=== PATIENT | male | born 1945 | race Caucasian/White ===

== ENCOUNTER 2023-12-31 13:10 | Inpatient (IN) | payer MEDICARE, SELFPAY ==
[2023-12-31] VITALS (7 sets, daily range): BP systolic 106–136; BP diastolic 60–86; PULSE 87–110; RESP 16–18; TEMP 36.7–37.1; O2SAT 93–97; BMI 32.3
--- NOTE | 2023-12-31 | EEG_ITS ---
FINDINGS: The waking background activity consists of low-voltage fast frequencies seen diffusely with muscle artifact anteriorly. Brief periods of very low voltage posterior 10 hertz developed. Photic stimulation is without activation. Hyperventilation was omitted. IMPRESSION: This waking EEG is considered within normal limits. No epileptiform discharges are seen. MD ASAD Sharma/ANAY / [id number]
--- NOTE | ~2023-12-31 | XR_ITS ---
EXAMINATION: PORTABLE CHEST 1 VIEW CLINICAL INFORMATION: Fall. COMPARISON: 08/19/2022. TECHNIQUE: Portable frontal view of the chest was obtained. FINDINGS: The lungs are hypoexpanded with minimal increased right basilar markings more likely due to atelectasis in this setting.. No focal infiltrate, effusion, edema, or pneumothorax. Cardiac and mediastinal silhouettes are within normal limits for size. Vascular calcification in aorta. No acute bony abnormality seen. XR/XR chest 1V IMPRESSION: Hypoexpanded with minimal increased right basilar markings more likely due to atelectasis.
--- NOTE | ~2023-12-31 | CT_ITS ---
EXAMINATION: CT cervical spine wo IV con, CT head/brain wo IV con INDICATION INFORMATION: Reason for Exam Seizure COMPARISON: Fall, seizure TECHNIQUE: Separate noncontrast CT examinations of the head and cervical spine were performed. Coronal and sagittal images were created for each examination at the technologist workstation. This CT examination was performed using dose optimization techniques as appropriate, variously including the following: *Automated exposure control *Adjustment of mA and/or kV according to patient size (this includes techniques or standardized protocols for targeted exams where dose is matched to indication/reason for exam; i.e. extremities or head) *Use of iterative reconstruction technique DLP: 1115.0 mGy-cm FINDINGS: Head: There is cystic encephalomalacia involving the majority of the right cerebral hemisphere, with sparing most notably involving the inferior temporal lobe, likely reflecting sequela of remote ischemic injury. Associated ex vacuo dilatation and abnormal morphology of the right lateral ventricle. 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 No acute osseous or soft tissue abnormality. The mastoid air cells and visualized portions of the paranasal sinuses are well aerated. There is no evidence of acute intracranial hemorrhage or territorial infarction. No abnormal mass effect or midline shift is seen. Huerta to white matter differentiation is well preserved. No extra-axial fluid collections are identified. No evidence of acute hydrocephalus. Cervical spine: There is no evidence of acute cervical spine fracture. Vertebral bodies remain normal in height. Reversal of usual cervical lordosis. Rightward curvature of the cervical spine. Advanced multilevel degenerative disc disease, worst from C3-C4 to C6-C7. There is also multilevel facet and uncovertebral hypertrophy. Suspected multilevel moderate to high-grade central spinal canal stenosis which is is not well evaluated by noncontrast CT. No pre- or paravertebral soft tissue abnormality is identified. Visualized portions of the lung apices are unremarkable. The thyroid gland is unremarkable. CT/CT cervical spine wo IV con IMPRESSION: 1. No acute intracranial abnormality. 2. Extensive encephalomalacia involving the majority of the right cerebral hemisphere, likely related to remote ischemic injury. 3. 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 No cervical spine fracture or traumatic malalignment.
--- NOTE | 2023-12-31 13:52 | ECG_ITS ---
Test Reason : FALL Blood Pressure : / mmHG Vent. Rate : 088 BPM Atrial Rate : 088 BPM P-R Int : 156 ms QRS Dur : 116 ms QT Int : 370 ms P-R-T Axes : 047 052 008 degrees QTc Int : 447 ms Normal sinus rhythm Incomplete right bundle branch block Borderline ECG No previous ECGs available Referred By: Parisa Landon Electronically Signed By:SHANTI HINES
--- NOTE | 2023-12-31 14:20 | ED_ITS ---
HPI - General Adult General Chief complaint: Fall Stated complaint: UNWIT FALL IN [employer],?LOC,?HS,DAILY ASA PER EMS Time Seen by Provider: 12/31/23 13:52 History of Present Illness HPI narrative: 78 y/o M patient; PMH HTN, cerebral palsy; presents as unwitnessed syncopal episode at [employer] prior to arrival. The patient states he lives alone and has been in a usual state of health. He went to [employer] today to look into getting a new phone. While there he had no prodromal symptoms but had syncopal episode with + head strike. He believes it only lasted for a few moments. He denies any current complaints in the emergency department. He denies any prior episodes of syncope. He denies: chest pain, SOB, cough/congestion, nausea/vomiting, abdominal pain, numbness/weakness/tingling. Related Data Allergies Allergy/AdvReac Type Severity Reaction Status Date / Time No Known Allergies Allergy Verified 12/31/23 13:52 Review of Systems 2 Review of Systems: Yes all other systems are reviewed and are negative Neurologic: Denies Sensory deficit (Neuro) [facility] Past Medical History Attestation statement: The following information was validated with the patient. Social History Social History Alcohol intake: never Smoked in Last 30 Days: No Use of substances other than those prescribed or required for medical reasons: No Advance Directives: No Advance Directives Information Provided: Yes Physical Exam ED Vital Signs: Vital Signs - 24 hr 12/31/23 13:34 12/31/23 14:07 12/31/23 17:40 Temperature 98.1 F 98.7 F Pulse Rate 97 92 87 Respiratory Rate 18 16 18 Blood Pressure 111/79 128/73 120/79 Pulse Oximetry 94 93 97 Oxygen Delivery Method Room Air Room Air Room Air 12/31/23 18:24 Temperature 98.2 F Pulse Rate 88 Respiratory Rate 16 Blood Pressure 130/60 Pulse Oximetry 94 Oxygen Delivery Method Room Air BMI result Body Mass Index 32.3 Patient is afebrile and hemodynamically stable. Const General: cooperative and no acute distress Orientation/consciousness: patient oriented x3 HENMT Head: Yes atraumatic Ears: TM's normal bilaterally Mouth: tongue normal Eyes Pupils: Equal, round and reactive pupils present EOM: EOMs intact bilaterally Neck Other: Cervical collar in place Neck: No tender Chest Chest palpation & inspection: normal inspection of the chest and normal palpation of entire chest wall Resp Effort & Inspection: normal respiratory effort, able to speak in complete sentences and no respiratory distress Auscultation: clear to auscultation bilaterally Cardio Rate: regular rate Rhythm: regular rhythm Peripheral pulses: Peripheral pulses 2+ throughout GI Inspection: Yes normal to inspection Palpation (GI): Soft to palpation, not firm, nontender, no guarding and not rigid Auscultation: normal bowel sounds Back/Spine/Pelvis Back: No back tenderness Neuro General: patient oriented x3 and moves all extremities Cranial nerves: Yes Facial sensation intact/muscles of mastication intact, Yes Intact sense of smell present, Yes Equal, round and reactive pupils present, Yes Nystagmus not present, Yes Midline tongue present, Yes Normal gag reflex present, Yes Symmetric palate elevation present, Yes Ability to bilaterally elevate shoulders present and Yes Other cranial nerve findings present (Right eye esotropia ) Motor exam (neuro): Other motor observations present (Strength 5/5 RUE. Strength 3/5 LUE. ) Sensory Exam: No Sensory deficit (Neuro) Course Course Course Narrative: Patient is afebrile and hemodynamically stable. Will obtain CXR, CT Head/Neck, EKG, and syncope labs. Reevaluation(s) Reevaluation #1: Patient has not previously been to this facility. Labs notable for evidence of mild dehydration with Cr 1.53, HCO3 19. Provided 2L IVF. Negative troponin. COVID/Flu/RSV negative. Ethanol negative. Time: 16:15 Reevaluation #2: CT Head and Cervical Spine without acute abnormalities. C-collar removed. Patient pending CXR. Time: 17:14 Reevaluation #3: Given unprovoked syncope without prodrome in elderly male with known HTN and cerebral palsy - will recommend admission to assess cardiac syncope. No clear indication of vasovagal or orthostatic syncope. Possible element of vasovagal syncope given laboratory evidence of dehydration, but patient without clear history of provoking preceding events. Plan: Admit to hospitalist Condition: Stable Medications Administered Discontinued Medications Generic Name Dose Route Start Last Admin Trade Name Freq PRN Reason Stop Dose Admin Sodium Chloride 1,000 mls @ 999 mls/hr 12/31/23 15:30 12/31/23 17:39 Ns IV 12/31/23 16:30 Infused .Q1H1M ELVIRA Infusion Sodium Chloride 1,000 mls @ 999 mls/hr 12/31/23 17:30 12/31/23 18:43 Ns IV 12/31/23 18:30 Infused .Q1H1M ELVIRA Infusion Medical Decision Making Lab Data 12/31/23 14:51 12/31/23 14:51 Labs: Lab Results 12/31/23 12/31/23 12/31/23 Range/Units 14:51 15:06 17:20 WBC 13.4 H (4.8-10.8) X10*3/uL RBC 5.54 (4.60-5.80) X10*6/uL Hgb 17.0 (14.0-18.0) g/dl Hct 50.0 (42.0-52.0) % MCV 90.3 (80.0-98.0) fL MCH 30.7 (27.0-33.0) pg MCHC 34.0 (31.0-36.0) g/dl RDW 13.7 (11.0-16.0) % Plt Count 245 (160-400) X10*3/uL MPV 9.9 (9.4-12.4) fL Immature Gran % (Auto) 0.4 (0.0-0.4) % Neut % (Auto) 74.1 H (45-73) % Lymph % (Auto) 18.8 L (20-40) % Carlton % (Auto) 5.7 (2-11) % Eos % (Auto) 0.1 (0-4) % Baso % (Auto) 0.9 (0-2) % Lymph # (Auto) 2.5 (1.2-4.9) X10*3/uL Carlton # (Auto) 0.8 (0.1-1.2) X10*3/uL Eos # (Auto) 0.0 (0.0-0.4) X10*3/uL Baso # (Auto) 0.1 (0.0-0.2) X10*3/uL Abs Immat Gran (auto) 0.05 H (0.00-0.03) X10*3/uL Absolute Neuts (auto) 9.9 H (2.0-8.3) x10*3/uL Absolute Nucleated RBC 0.000 (0.0-0.012) X10*3/uL Nucleated RBC % (auto) 0.0 (0.0-0.2) /100WBC Sodium 142 (135-145) mmol/L Potassium 4.7 (3.3-5.1) mmol/L Chloride 111 H (96-108) mmol/L Carbon Dioxide 19 L (22-29) mmol/L Anion Gap 17 (12-20) BUN 28 H (9-16) mg/dL Creatinine 1.53 H (0.5-1.4) mg/dL Estim Creat Clear Calc 36.6 Estimated GFR 44 Random Glucose 99 (60-115) mg/dL Calcium 9.3 (8.4-10.2) mg/dL Total Bilirubin 0.4 (0.0-1.0) mg/dL Direct Bilirubin 0.1 (0.0-0.5) mg/dL AST 21 (5-37) U/L ALT 30 (0-40) U/L Alkaline Phosphatase 63 (39-117) U/L Troponin I High Sens < 2.7 < 2.7 (<3.5-35.0) ng/L Total Protein 7.8 (6.5-8.0) g/dL Albumin 4.2 (3.5-5.0) g/dL Lipase 29 (8-78) U/L Ethyl Alcohol < 10 mg/dL Influenza Type A (PCR) NEGATIVE (Negative) Influenza Type B (PCR) NEGATIVE (Negative) RSV RNA Qual (PCR) NEGATIVE (Negative) SARS-CoV-2 RNA (RT-PCR) NEGATIVE (Negative) Independent Interpretation I performed an independent interpretation of an: EKG Interpretation: NSR 88BPM with normal axis, QRS 116, QTc 447 with RBBB. Radiology Impression Discussion of test interpretation with radiology: I have reviewed the radiologist's reading. Radiologist Impression: EXAMINATION: PORTABLE CHEST 1 VIEW CLINICAL INFORMATION: Fall. COMPARISON: 08/19/2022. TECHNIQUE: Portable frontal view of the chest was obtained. FINDINGS: The lungs are hypoexpanded with minimal increased right basilar markings more likely due to atelectasis in this setting.. No focal infiltrate, effusion, edema, or pneumothorax. Cardiac and mediastinal silhouettes are within normal limits for size. Vascular calcification in aorta. No acute bony abnormality seen. XR/XR chest 1V IMPRESSION: Hypoexpanded with minimal increased right basilar markings more likely due to atelectasis. EXAMINATION: CT cervical spine wo IV con, CT head/brain wo IV con INDICATION INFORMATION: Reason for Exam Seizure COMPARISON: Fall, seizure TECHNIQUE: Separate noncontrast CT examinations of the head and cervical spine were performed. Coronal and sagittal images were created for each examination at the technologist workstation. This CT examination was performed using dose optimization techniques as appropriate, variously including the following: *Automated exposure control *Adjustment of mA and/or kV according to patient size (this includes techniques or standardized protocols for targeted exams where dose is matched to indication/reason for exam; i.e. extremities or head) *Use of iterative reconstruction technique DLP: 1115.0 mGy-cm FINDINGS: Head: There is cystic encephalomalacia involving the majority of the right cerebral hemisphere, with sparing most notably involving the inferior temporal lobe, likely reflecting sequela of remote ischemic injury. Associated ex vacuo dilatation and abnormal morphology of the right lateral ventricle. 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 No acute osseous or soft tissue abnormality. The mastoid air cells and visualized portions of the paranasal sinuses are well aerated. There is no evidence of acute intracranial hemorrhage or territorial infarction. No abnormal mass effect or midline shift is seen. Huerta to white matter differentiation is well preserved. No extra-axial fluid collections are identified. No evidence of acute hydrocephalus. Cervical spine: There is no evidence of acute cervical spine fracture. Vertebral bodies remain normal in height. Reversal of usual cervical lordosis. Rightward curvature of the cervical spine. Advanced multilevel degenerative disc disease, worst from C3-C4 to C6-C7. There is also multilevel facet and uncovertebral hypertrophy. Suspected multilevel moderate to high-grade central spinal canal stenosis which is is not well evaluated by noncontrast CT. No pre- or paravertebral soft tissue abnormality is identified. Visualized portions of the lung apices are unremarkable. The thyroid gland is unremarkable. CT/CT head/brain wo IV con IMPRESSION: 1. No acute intracranial abnormality. 2. Extensive encephalomalacia involving the majority of the right cerebral hemisphere, likely related to remote ischemic injury. 3. 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 No cervical spine fracture or traumatic malalignment. Discharge Plan Discharge Clinical Impression: Syncope Patient Disposition: Admitted As Inpatient
[2023-12-31 14:57] LABS: MANUAL DIFF FLAG NO
[2023-12-31 14:59] LABS: Basophils Absolute Auto 0.1 X10*3/uL (0.0-0.2); Basophils Percent Auto 0.9 % (0-2); Eosinophils Percent Auto 0.1 % (0-4); Imm Gran Abs Auto 0.05 X10*3/uL (0.00-0.03); Imm Gran Pct Auto 0.4 % (0.0-0.4); Lymphocytes Absolute Auto 2.5 X10*3/uL (1.2-4.9); Lymphocytes Percent Auto 18.8 % (20-40); Mean Corpuscular Hemoglobin 30.7 pg (27.0-33.0); Mean Corpuscular Volume 90.3 fL (80.0-98.0); Mean Platelet Volume 9.9 fL (9.4-12.4); Monocytes Absolute Auto 0.8 X10*3/uL (0.1-1.2); Monocytes Percent Auto 5.7 % (2-11); Neutrophils Absolute Auto 9.9 x10*3/uL (2.0-8.3); Neutrophils Percent Auto 74.1 % (45-73); Platelet Count 245 X10*3/uL (160-400); Red Blood Count 5.54 X10*6/uL (4.60-5.80); Red Cell Distribution Width 13.7 % (11.0-16.0); White Blood Count 13.4 X10*3/uL (4.8-10.8)
[2023-12-31 15:19] LABS: Ethanol < 10 mg/dL
[2023-12-31 15:21] LABS: Alanine Aminotransferase 30 U/L (0-40); Albumin Level 4.2 g/dL (3.5-5.0); Alkaline Phosphatase 63 U/L (39-117); Anion Gap 17 (12-20); Aspartate Amino Transferase 21 U/L (5-37); Bilirubin Direct 0.1 mg/dL (0.0-0.5); Bilirubin Total 0.4 mg/dL (0.0-1.0); Blood Urea Nitrogen 28 mg/dL (9-16); Calcium 9.3 mg/dL (8.4-10.2); Carbon Dioxide 19 mmol/L (22-29); Chloride 111 mmol/L (96-108); Creatinine Clr Calc Pharmacy 36.6; Estimated Glomerular Filt Rate 44; Glucose Random 99 mg/dL (60-115); Lipase 29 U/L (8-78); Potassium 4.7 mmol/L (3.3-5.1); Sodium 142 mmol/L (135-145); Total Protein 7.8 g/dL (6.5-8.0)
[2023-12-31 15:27] LABS: Troponin-I High Sensitivity < 2.7 ng/L (<3.5-35.0)
[2023-12-31] MEDS: 0.9 % Sodium Chloride 1,000 ML 999 ML IV ×2 (15:30→17:39)
[2023-12-31 15:48] LABS: Influenza A PCR NEGATIVE (Negative); Influenza B PCR NEGATIVE (Negative); Resp Syncy Virus RNA Qual PCR NEGATIVE (Negative); SARS COV2 PCR INHOUSE NEGATIVE (Negative)
--- NOTE | 2023-12-31 17:05 | PC.NURSE ---
Per desean (sister in law of Jason) Jason HCP was rushed to hospital this afternoon and will not be able to pick patient up if he is to be discharged. Kaye stating that she will call back for further updates
[2023-12-31 17:50] LABS: Troponin-I High Sensitivity < 2.7 ng/L (<3.5-35.0)
--- NOTE | 2023-12-31 18:45 | PC.NURSE ---
Continues to denies pain or discomfort, fluids infused per mar, vss, nsr on monitor
--- NOTE | 2023-12-31 19:32 | PHA.MEDREC ---
Pharmacy Consult ? Medication Reconciliation Pharmacy has completed the medication reconciliation. Patient reported all medications. Danyell Christensen, PeytonD
--- NOTE | 2023-12-31 20:16 | PM.IMHP ---
History of Present Illness Date of Service: 12/31/23 Attending physician on admission: Yari Garrido Chief Complaint: fall 78-year-old male with history of hypertension, cerebral palsy presented to the ED via EMS following an unwitnessed fall, [place] [employer] [place] to [place]. The patient tells me that he resides in an assisted living facility in [facility] but was on a senior trip which is how [place]. He states he tripped and fell to the ground. Denies any head strike and is unsure if he lost consciousness. The fall was unwitnessed. He denies any recent illness. He denies any prodrome leading up to the fall including lightheadedness, visual changes, headache, weakness, paresthesias, palpitations, shortness of breath, or chest pain. Denies any fevers, chills, abdominal pain, nausea, vomiting, diarrhea, urinary symptoms. On arrival, vital signs stable. There is a mild leukocytosis of 13.4. Creatinine 1.53, baseline unknown. BUN 28. Electrolyte levels within normal limits except CO2 of 19. Ethyl alcohol level undetectable. Urine drug screen pending. Negative for COVID-19, influenza, RSV. Head CT negative for any acute intracranial abnormality but showed extensive encephalomalacia involving the majority of the right cerebral hemisphere likely related to remote ischemic injury. 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 CT of the cervical spine negative for any acute fracture, subluxation, or dislocation. Chest x-ray shows hypoexpanded lungs with mildly increased right basilar markings likely due to atelectasis. In the ED, has received 2 L IV NS. Review of Systems Review of Systems: General: No fevers, malaise, unintentional weight loss HEENT: No blurred vision, diplopia. No sore throat, nasal congestion, rhinorrhea, sinus pain, ear pain Cardiovascular: No chest pain, palpitations, or leg edema Respiratory: No shortness of breath, wheezing, cough GI: No abdominal pain, nausea, vomiting, diarrhea, constipation, melena, hematochezia : No dysuria, hematuria, increased urinary frequency, decreased urinary output MSK: No myalgia, back pain Neuro: No headaches, weakness, paresthesias Skin: No rashes or lesions [facility] Medical History Cerebral palsy HTN (hypertension) Social History Alcohol intake: never Smoked in Last 30 Days: No Use of substances other than those prescribed or required for medical reasons: No Advance Directives: No Advance Directives Information Provided: Yes Meds Allergies Allergy/AdvReac Type Severity Reaction Status Date / Time No Known Allergies Allergy Verified 12/31/23 13:52 Active Medications: Current Medications Acetaminophen (Acetaminophen 325 Mg Tablet) 650 mg PO Q6H PRN PRN Reason: Pain, Mild (Pain Scale 1-3) Heparin Sodium (Porcine) (Heparin Sodium,Porcine 5,000 Unit/Ml Vial) 5,000 unit SUBCUT Q12H ELVIRA Ondansetron HCl (Ondansetron Hcl 4 Mg/2 Ml Vial) 4 mg IVPUSH Q8H PRN PRN Reason: Nausea and Vomiting Senna (Sennosides 8.6 Mg Tablet) 17.2 mg PO BEDTIME PRN PRN Reason: Constipation Sodium Chloride (0.9 % Sodium Chloride Flush 3 Ml Syringe) 3 ml IVFLUSH QSHIFT [facility] Home Medications Medication Instructions Recorded Confirmed Last Taken Type aspirin 81 mg tablet,delayed 81 mg PO DAILY 12/31/23 12/31/23 12/31/23 History release cholecalciferol (vitamin D3) 25 25 mcg PO DAILY 12/31/23 12/31/23 12/31/23 History mcg (1,000 unit) tablet lisinopril 20 mg tablet 20 mg PO DAILY 12/31/23 12/31/23 12/31/23 History Physical Exam Vital Signs and Narrative: Vital Signs: Last Vital Signs Temp 98.2 F 12/31/23 18:24 Pulse 88 12/31/23 18:24 Resp 16 12/31/23 18:24 BP 130/60 12/31/23 18:24 Pulse Ox 94 12/31/23 18:24 O2 Del Method Room Air 12/31/23 18:24 BMI result Body Mass Index 32.3 Constitutional - Awake and Alert, No apparent distress Eyes - PERRLA, EOMI Cardiovascular - S1S2, RRR, No edema Respiratory - Normal lung expansion, Normal respiratory effort, No respiratory distress, CTA bilaterally Gastrointestinal - NT / ND; +BS; No rebound or guarding Extremities - no calf tenderness bilaterally, no swelling Skin - Warm/Dry Neurological - Alert & oriented x3, baseline R cranial nerve IV palsy, otherwise CN II-XII in tact, 5/5 strength BUE and BLE Psychological - Appropriate affect Results Labs 12/31/23 14:51 12/31/23 14:51 Labs: Laboratory Results - last 24 hr 12/31/23 12/31/23 14:51 15:06 MCV 90.3 MCH 30.7 MCHC 34.0 RDW 13.7 Plt Count 245 MPV 9.9 Immature Gran % (Auto) 0.4 Neut % (Auto) 74.1 H Lymph % (Auto) 18.8 L Cross % (Auto) 5.7 Eos % (Auto) 0.1 Baso % (Auto) 0.9 Lymph # (Auto) 2.5 Cross # (Auto) 0.8 Eos # (Auto) 0.0 Baso # (Auto) 0.1 Abs Immat Gran (auto) 0.05 H Absolute Neuts (auto) 9.9 H Absolute Nucleated RBC 0.000 Nucleated RBC % (auto) 0.0 Anion Gap 17 Estim Creat Clear Calc 36.6 Estimated GFR 44 Random Glucose 99 Calcium 9.3 Total Bilirubin 0.4 Direct Bilirubin 0.1 AST 21 ALT 30 Alkaline Phosphatase 63 Total Protein 7.8 Albumin 4.2 Lipase 29 Ethyl Alcohol < 10 Influenza Type A (PCR) NEGATIVE Influenza Type B (PCR) NEGATIVE RSV RNA Qual (PCR) NEGATIVE SARS-CoV-2 RNA (RT-PCR) NEGATIVE Imaging Radiologist's Impressions: Impressions Cervical Spine CT 12/31/23 15:58 IMPRESSION: 1. No acute intracranial abnormality. 2. Extensive encephalomalacia involving the majority of the right cerebral hemisphere, likely related to remote ischemic injury. 3. 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 No cervical spine fracture or traumatic malalignment. Head CT 12/31/23 15:58 IMPRESSION: 1. No acute intracranial abnormality. 2. Extensive encephalomalacia involving the majority of the right cerebral hemisphere, likely related to remote ischemic injury. 3. 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 No cervical spine fracture or traumatic malalignment. Chest X-Ray 12/31/23 17:58 IMPRESSION: Hypoexpanded with minimal increased right basilar markings more likely due to atelectasis. Assessment and Plan (1) Syncope: Status: Acute Plan 78-year-old male with history of hypertension, cerebral palsy to be observed for unwitness fall with concern for syncope. #Unwitnessed fall with concern for syncope -Head CT negative for any acute intracranial abnormality, but shows large area encephalomalacia. CT cervical spine negative for any acute osseous abnormality -rule out infectious etiology with UA/UC. CXR negative for infection. Pt afebrile, mild leukocytosis 13 -No hypotension. Check orthostatic VS -Check echo -EEG -monitor on telemetry -PT evaluation -Received 2L IVF in ED, hold on additional fluids at this time #Elevated creatinine -baseline unknown -Received 2L IVF in ED -Follow renal function/lytes #HTN -bp reasonably controlled -continue lisinopril DVT prophylaxis-heparin Full code It is unclear why pt came to [employer] in [place], [place] when he lives in [facility]. He states he was on a trip with senior group. He is oriented, knows his name, where he is, and year. Gives me the name of his HCP, brother Jason and phone number, though I have been unable to reach him. Attempt was also made to reach his assisted living facility [facility] in [facility] but was unsuccessful. Patient requires inpatient stay at least 2 midnights due to unwitnessed fall with concern for syncope requiring further investigation and etiology of the syncopal episode, possible expert consultation, and PT evaluation for possible placement to [facility] Stroke Does the patient have a stroke diagnosis?: No VTE Prior VTE?: No VTE Risk Level:: Medical - moderate - high VTE Device Contraindication: Treatment Not Indicated VTE Drug Contraindication: N/A - Med Ordered
[2023-12-31] MEDS: Acetaminophen 325 MG TABLET 975 MG PO (21:18)
[2023-12-31] MEDS: Heparin Sodium,Porcine 5,000 UNIT/ML VIAL 5000 UNIT SUBCUT (21:23)
[2024-01-01] VITALS (12 sets, daily range): BP systolic 109–150; BP diastolic 58–92; PULSE 70–110; RESP 14–20; TEMP 36.1–37.1; O2SAT 92–95; BMI 32.3
--- NOTE | 2024-01-01 01:03 | PC.NURSE ---
Kaye Cuellar, sister in law,
[2024-01-01 01:10] LABS: Appearance Urine Cloudy; Color Urine Yellow; Glucose Urine UA Negative (Negative); Leukocyte Esterase Urine Small (1+) (Negative); Nitrite Urine Negative (Negative); PH 5.5 (5.0-9.0); UMIC TRIGGER UACC YES; Urine Blood Negative (Negative); Urine Ketones Trace mg/dL (Negative); Urine Protein Trace mg/dL (Neg-Trace)
[2024-01-01 01:23] LABS: Amphetamine Screen Urine Not Detected (Not Detect); Barbiturates, Urine Not Detected (Not Detect); Benzodiazepines Screen Urine Not Detected (Not Detect); Cannabinoid Screen Urine Not Detected (Not Detect); Cocaine Screen Urine Not Detected (Not Detect); Fentanyl, urine Not Detected (Not Detect); Opiate Screen Urine Not Detected (Not Detect); Phencyclidine Screen Urine Not Detected (Not Detect)
[2024-01-01 01:29] LABS: Bacteria Urine None Seen (None Seen); Hyaline Casts Urine 0-2 /LPF (0-2); RBC Urine 0-2 /HPF (0-2); Squamous Epithelial Cell Urine 0-2 /HPF (0-2); UACC Culture Trigger YES; WBC Urine 0-5 /HPF (0-5)
[2024-01-01 05:03] LABS: Appearance Urine Clear; Color Urine Yellow; Glucose Urine UA Negative (Negative); Leukocyte Esterase Urine Negative (Negative); Nitrite Urine Negative (Negative); PH 5.5 (5.0-9.0); UMIC TRIGGER UA YES; Urine Blood Trace (Negative); Urine Ketones Trace mg/dL (Negative); Urine Protein Negative (Neg-Trace)
[2024-01-01 05:09] LABS: Bacteria Urine None Seen (None Seen); Hyaline Casts Urine 0-2 /LPF (0-2); Squamous Epithelial Cell Urine 0-2 /HPF (0-2); WBC Urine 0-5 /HPF (0-5)
--- NOTE | 2024-01-01 07:00 | CA_ITS ---
Transthoracic Echocardiogram Patient (Last, First, Middle): Jason Velez, Gender: Male Date of : 1945 Age: 78 Procedure Date: 01/01/2024 Procedure Type: Transthoracic Echocardiogram Location: [facility] Height: 160.02 cm Weight: 82.56 kg BSA: 1.86 m2 Heart Rate: bpm BP: 109 / 58 mmHg Shake Maker: Referring MD: Joaquina LAGUNA Symptoms: syncope Study Quality: Adequate ECG Rhythm: Sinus Conclusions: - The left ventricular systolic function is hyperdynamic. The calculated ejection fraction is 73% by biplane method. - No obvious valvular pathology seen on this study. Findings Left Ventricle Normal left ventricular cavity size. There is mildly increased left ventricular wall thickness. The left ventricular systolic function is hyperdynamic. The calculated ejection fraction is 73% by biplane method. There is no evidence of regional wall motion abnormalities. Diastolic function is normal for age. Right Ventricle Normal right ventricular cavity size and systolic function. Atria Both atria are normal in size. Aortic Valve The aortic valve structure and function is likely normal. There is no aortic valve stenosis. There is no aortic valve regurgitation. Mitral Valve The mitral valve appears normal. There is no mitral valve regurgitation. There is no mitral valve stenosis. Pulmonic Valve The pulmonic valve is likely normal. Tricuspid Valve There is trace tricuspid valve regurgitation. There is no evidence of pulmonary hypertension. Great Vessels The aorta was not well visualized. The aortic annulus is normal in size. Venous The inferior vena cava is normal in size and collapses greater than 50% with inspiration. Pericardium/Pleural There is no evidence of pericardial effusion. Prior Study Comparison No prior study available for comparison. Recommendations, Care & Conclusions No obvious valvular pathology seen on this study. Measurements 2D Linear Measurements IVSd: 1.01 0.6-0.9/0.6-1.0 cm LVIDd: 3.28 3.9-5.3/4.2-5.9 cm LVIDd Index: 1.76 2.4-3.2/2.2-3.1 cm/m2 LVIDs: 1.88 2.0-3.6 cm LVPWd: 1.01 0.7-1.1 cm Ao Root: 3.40 2.1-3.5 cm LA Diam: 2.80 2.7-3.8/3.0-4.0 cm LAIDs Index: 1.51 1.5-2.3 cm/m2 LV Mass: 118.13 67-162/88-224 g LV Mass Index: 63.51 43-95/49-115 g/m2 LVOT Diam: 2.20 3.0+(-)1.3 cm 2D Systolic Function EF 4C: 71.50 >55% EF 2C: 75.80 >55% EF BiP: 72.50 >55% Mitral Valve MV Pk E: 0.42 MV PK A: 1.07 MV Decel Time: 123.00 E/A: 0.40 E'Lateral: 5.55 E'Medial: 5.00 E/E' Med: 8.40 E/E' Lat: 7.60 PHT: 36.00 MVA PHT: 6.11 Decel Murray: 5.78 Aortic Valve AoV Pk Иван: 1.66 AoV Mn Иван: 1.01 AoV VTI: 0.30 AoV Pk Grad: 11.00 Aov Mn Grad: 5.00 MARTHA Cont.VTI: 3.19 LVOT LVOT Pk Иван: 1.52 LVOT Mn Иван: 0.89 LVOT VTI: 0.25 LVOT Pk Grad: 9.00 LVOT Mn Grad: 4.00 LVOT Diam: 2.20 LVOT Area: 3.80 Diastolic Function MV Pk E: 0.42 MV Pk A: 1.07 E/A: 0.40 E'Medial: 5.00 E/E' Med: 8.40 E' Laterial: 5.55 E/E' Lat: 7.60 Right Ventricle TAPSE (mm): 23.00 TVS' Иван: 13.00 Tricuspid Valve TR Pk Иван: 1.92 TR Pk Grad: 15.00 RA Press: 3.00 RVSP: 18.00 Great Vessels Aorta Ao Root-2D: 3.40 2.0-3.7 cm Pulmonary Valve PV Pk Иван: 1.07 Peak PV Grad: 5.00 Updated in Other Vendor System with Status of Final Brody Gorman MD electronically signed on 01/01/2024 9:59:45 AM with status of Final
[2024-01-01] MEDS: 0.9 % Sodium Chloride Flush 3 ML SYRINGE IVFLUSH ×2 (09:28→16:03)
[2024-01-01] MEDS: Cholecalciferol (Vitamin D3) 25 MCG TABLET PO (09:28)
[2024-01-01] MEDS: Aspirin Enteric Coated 81 MG TABLET.DR PO (09:28)
[2024-01-01] MEDS: Heparin Sodium,Porcine 5,000 UNIT/ML VIAL 5000 UNIT SUBCUT ×2 (09:29→23:11)
--- NOTE | 2024-01-01 09:39 | MHC.CM.PN ---
IMM 01/01/24, Pt lives in [facility] in [place], [place]. He has HCP: his brother Ladarius, (contact sister in law, Kaye Cuellar: [phone]. MICHELLE RN: Ebony Elizabeth, . [facility] provides meals and assistance with med management and ADL's. Jason has a shower chair and cane for medical equipment. If he needs skilled VNA care upon DC, contact: [facility]: ph. [phone], fax. [phone]. His pharmacy: [facility] in [place], [place]: ph. [phone]. fax: [phone]. The [facility] does not provide transportation, so transport home is TBD. CM will follow and assist with DC plan.
[2024-01-01 09:55] LABS: MANUAL DIFF FLAG NO
[2024-01-01 09:59] LABS: Basophils Absolute Auto 0.1 X10*3/uL (0.0-0.2); Basophils Percent Auto 0.8 % (0-2); Hemoglobin 15.2 g/dl (14.0-18.0); Imm Gran Abs Auto 0.04 X10*3/uL (0.00-0.03); Imm Gran Pct Auto 0.4 % (0.0-0.4); Lymphocytes Absolute Auto 2.1 X10*3/uL (1.2-4.9); Lymphocytes Percent Auto 19.2 % (20-40); Mean Corpuscular HGB Conc 33.8 g/dl (31.0-36.0); Mean Corpuscular Hemoglobin 30.7 pg (27.0-33.0); Mean Corpuscular Volume 90.9 fL (80.0-98.0); Mean Platelet Volume 10.1 fL (9.4-12.4); Monocytes Absolute Auto 0.8 X10*3/uL (0.1-1.2); Monocytes Percent Auto 7.9 % (2-11); Neutrophils Absolute Auto 7.7 x10*3/uL (2.0-8.3); Neutrophils Percent Auto 71.7 % (45-73); Platelet Count 227 X10*3/uL (160-400); Red Blood Count 4.95 X10*6/uL (4.60-5.80); Red Cell Distribution Width 13.8 % (11.0-16.0); White Blood Count 10.7 X10*3/uL (4.8-10.8)
[2024-01-01 10:11] LABS: Anion Gap 12 (12-20); Blood Urea Nitrogen 21 mg/dL (9-16); Calcium 8.4 mg/dL (8.4-10.2); Carbon Dioxide 21 mmol/L (22-29); Chloride 116 mmol/L (96-108); Estimated Glomerular Filt Rate 52; Glucose Random 102 mg/dL (60-115); Potassium 4.2 mmol/L (3.3-5.1); Sodium 145 mmol/L (135-145)
[2024-01-01] MEDS: Lactated Ringers 1,000 ML 80 ML IVCONT (10:36)
--- NOTE | 2024-01-01 17:26 | P.PNIM_ITS ---
Subjective Subjective Date of Service: 01/01/24 Interval History: patient denies losing consiousness ,says tripped and fell Review of Systems Denies any chest pain or shortness of breath Physical Exam 2 Vital Signs: Vital Signs: Last Vital Signs Temp 98.0 F 01/01/24 15:29 Pulse 74 01/01/24 15:30 Resp 18 01/01/24 15:30 BP 122/76 01/01/24 15:29 Pulse Ox 94 01/01/24 15:30 O2 Del Method Room Air 01/01/24 15:29 BMI result Body Mass Index 32.3 Appearance: Alert.? Oriented X3.? not in distress.? cvs: rrr, [id number] , no murmur res: clear to auscultation ,no rhonchii or wheezing abd: no rebound or guarding ,nt, bs present. ext pulses present , no cyanosis . : has penile quentin swellin ,no erythema or discharge,difficult to urinate? neuro: axo3 , nonfocal. Objective Data Active Medications Acetaminophen (Acetaminophen 325 Mg Tablet) 650 mg PO Q6H PRN PRN Reason: Pain, Mild (Pain Scale 1-3) Aspirin (Aspirin Enteric Coated 81 Mg Tablet.) 81 mg PO DAILY [facility] Last Admin: 01/01/24 09:28 Dose: 81 mg Documented By: ABIOLA Heparin Sodium (Porcine) (Heparin Sodium,Porcine 5,000 Unit/Ml Vial) 5,000 unit SUBCUT Q12H [facility] Last Admin: 01/01/24 09:29 Dose: 5,000 unit Documented By: ABIOLA Lactated Ringer's (Lr) 1,000 mls @ 80 mls/hr IVCONT .[id number] [facility] Last Admin: 01/01/24 16:52 Dose: Not Given Documented By: ABIOLA Non-Admin Reason: Physician Held Med Ondansetron HCl (Ondansetron Hcl 4 Mg/2 Ml Vial) 4 mg IVPUSH Q8H PRN PRN Reason: Nausea and Vomiting Senna (Sennosides 8.6 Mg Tablet) 17.2 mg PO BEDTIME PRN PRN Reason: Constipation Sodium Chloride (0.9 % Sodium Chloride Flush 3 Ml Syringe) 3 ml IVFLUSH QSHIFT [facility] Last Admin: 01/01/24 16:03 Dose: 3 ml Documented By: ABIOLA Vitamin D (Cholecalciferol (Vitamin D3) 25 Mcg Tablet) 25 mcg PO DAILY [facility] Last Admin: 01/01/24 09:28 Dose: 25 mcg Documented By: ABIOLA Labs 01/01/24 08:46 01/01/24 08:46 Labs: Laboratory Results - last 24 hr 01/01/24 01/01/24 01/01/24 00:56 00:57 04:45 MCV MCH MCHC RDW Plt Count MPV Immature Gran % (Auto) Neut % (Auto) Lymph % (Auto) Hunt % (Auto) Eos % (Auto) Baso % (Auto) Lymph # (Auto) Hunt # (Auto) Eos # (Auto) Baso # (Auto) Abs Immat Gran (auto) Absolute Neuts (auto) Absolute Nucleated RBC Nucleated RBC % (auto) Anion Gap Estim Creat Clear Calc Estimated GFR Random Glucose Calcium Urine Color Yellow Yellow Urine Appearance Cloudy Clear Urine pH 5.5 5.5 Ur Specific [place] 1.020 1.020 Urine Protein Trace Negative Urine Glucose (UA) Negative Negative Urine Ketones Trace Trace Urine Blood Negative Trace H Urine Nitrite Negative Negative Ur Leukocyte Esterase Small (1+) H Negative Urine RBC 0-2 6-10 H Urine WBC 0-5 0-5 Ur Squamous Epith Cells 0-2 0-2 Urine Bacteria None Seen None Seen Hyaline Casts 0-2 0-2 Urine Opiates Screen Not Detected Urine Fentanyl Screen Not Detected Ur Barbiturates Screen Not Detected Ur Phencyclidine Scrn Not Detected Ur Amphetamines Screen Not Detected U Benzodiazepines Scrn Not Detected Urine Cocaine Screen Not Detected U Marijuana (THC) Screen Not Detected 01/01/24 08:46 MCV 90.9 MCH 30.7 MCHC 33.8 RDW 13.8 Plt Count 227 MPV 10.1 Immature Gran % (Auto) 0.4 Neut % (Auto) 71.7 Lymph % (Auto) 19.2 L Hunt % (Auto) 7.9 Eos % (Auto) 0.0 Baso % (Auto) 0.8 Lymph # (Auto) 2.1 Hunt # (Auto) 0.8 Eos # (Auto) 0.0 Baso # (Auto) 0.1 Abs Immat Gran (auto) 0.04 H Absolute Neuts (auto) 7.7 Absolute Nucleated RBC 0.000 Nucleated RBC % (auto) 0.0 Anion Gap 12 Estim Creat Clear Calc 42.0 Estimated GFR 52 Random Glucose 102 Calcium 8.4 D Urine Color Urine Appearance Urine pH Ur Specific [place] Urine Protein Urine Glucose (UA) Urine Ketones Urine Blood Urine Nitrite Ur Leukocyte Esterase Urine RBC Urine WBC Ur Squamous Epith Cells Urine Bacteria Hyaline Casts Urine Opiates Screen Urine Fentanyl Screen Ur Barbiturates Screen Ur Phencyclidine Scrn Ur Amphetamines Screen U Benzodiazepines Scrn Urine Cocaine Screen U Marijuana (THC) Screen Assessment and Plan (1) Syncope: Status: Acute Plan 78-year-old male with history of hypertension, cerebral palsy to be observed for unwitness fall with concern for syncope. Unwitnessed fall with concern for syncope -Head CT negative for any acute intracranial abnormality, but shows large area encephalomalacia. CT cervical spine negative for any acute osseous abnormality CXR negative for infection. Pt afebrile, mild leukocytosis 13 ua neg for pyuria /bacteruria orthostatic signs -pending Check echo: The left ventricular systolic function is hyperdynamic. The calculated ejection fraction is 73% by biplane method. - No obvious valvular pathology seen on this study. EEG pending plan: monitor on telemetry PT evaluation THOMAS: -baseline unknown,BUT CR Improving IVf -Follow renal function/lytes HTN -bp reasonably controlled hold lisinopril Possible balanitis and urinary retention:PVR, straight cath, urology evaluation, Flomax. DVT prophylaxis-heparin Ongoing need for Hospitalization stay: For syncopal workup, telemetry monitoring as well as PT evaluation in addition patient has possible balanitis with urinary retention need urology evaluation as well as THOMAS need hydration and renal function and electrolyte monitoring Quality Stroke Does the patient have a stroke diagnosis?: No VTE Prior VTE?: No VTE Risk Level:: Medical - moderate - high VTE Device Contraindication: Treatment Not Indicated VTE Drug Contraindication: N/A - Med Ordered
--- NOTE | 2024-01-01 17:40 | PM.NEUROCN ---
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 syncopal episode. No h/o Sz. He resides in an assisted living facility in [facility] but was on a senior trip which is how he ended up in [place] the mall. He states he tripped and fell to the ground. Denies any head strike and is unsure if he lost consciousness. The fall was unwitnessed. He denies any recent illness. He denies any prodrome leading up to the fall including lightheadedness, visual changes, headache, weakness, paresthesias, palpitations, shortness of breath, or chest pain. 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 CT of the cervical spine negative for any acute fracture, subluxation, or dislocation. EEG show slow voltage EEG with no Sz discharges Review of Systems Review of Systems: Denies any chest pain or shortness of breath Yes all other systems are reviewed and are negative Neurologic: Denies Sensory deficit (Neuro) [facility] Past Medical History Medical History Cerebral palsy HTN (hypertension) Social History Social History Household Members: None Housing: Apartment Do you presently have visiting nurse or other home services: Yes Alcohol intake: never Patient Tobacco Use Status: Never used Tobacco Smoked in Last 30 Days: No Use of substances other than those prescribed or required for medical reasons: No Currently Displaying Signs/Symptoms of Drug Intoxication Withdrawal: No Have you been hit, kicked, punched, or otherwise hurt by someone within the past year? If so, by whom?: No Do you feel safe in your current relationship?: Yes Is there a partner from a previous relationship who is making you feel unsafe now?: No Are you made to feel afraid or neglected: No Spiritual Healthcare Practices: Temple Advance Directives: No Advance Directives Information Provided: No Advance Directives on File: No Do you have thoughts of harming others: None Do you have a plan to hurt others: No Plan Recently lost weight without trying: No Eating poorly because of decreased appetite: No Nutrition Risks: No Nutritional Risk Poor oral hygiene: No service: No Meds Allergies Allergy/AdvReac Type Severity Reaction Status Date / Time No Known Allergies Allergy Verified 12/31/23 13:52 Active Medications: Current Medications Acetaminophen (Acetaminophen 325 Mg Tablet) 650 mg PO Q6H PRN PRN Reason: Pain, Mild (Pain Scale 1-3) Aspirin (Aspirin Enteric Coated 81 Mg Tablet.Dr) 81 mg PO DAILY [facility] Last Admin: 01/01/24 09:28 Dose: 81 mg Heparin Sodium (Porcine) (Heparin Sodium,Porcine 5,000 Unit/Ml Vial) 5,000 unit SUBCUT Q12H [facility] Last Admin: 01/01/24 09:29 Dose: 5,000 unit Lactated Ringer's (Lr) 1,000 mls @ 80 mls/hr IVCONT .[id number] [facility] Last Admin: 01/01/24 16:52 Dose: Not Given Ondansetron HCl (Ondansetron Hcl 4 Mg/2 Ml Vial) 4 mg IVPUSH Q8H PRN PRN Reason: Nausea and Vomiting Senna (Sennosides 8.6 Mg Tablet) 17.2 mg PO BEDTIME PRN PRN Reason: Constipation Sodium Chloride (0.9 % Sodium Chloride Flush 3 Ml Syringe) 3 ml IVFLUSH QSHIFT [facility] Last Admin: 01/01/24 16:03 Dose: 3 ml Vitamin D (Cholecalciferol (Vitamin D3) 25 Mcg Tablet) 25 mcg PO DAILY [facility] Last Admin: 01/01/24 09:28 Dose: 25 mcg Home Medications Medication Instructions Recorded Confirmed Last Taken Type aspirin 81 mg tablet,delayed 81 mg PO DAILY 12/31/23 12/31/23 12/31/23 History release cholecalciferol (vitamin D3) 25 25 mcg PO DAILY 12/31/23 12/31/23 12/31/23 History mcg (1,000 unit) tablet lisinopril 20 mg tablet 20 mg PO DAILY 12/31/23 12/31/23 12/31/23 History Physical Exam Vital Signs: Vital Signs: Last Vital Signs Temp 98.0 F 01/01/24 15:29 Pulse 74 01/01/24 15:30 Resp 18 01/01/24 15:30 BP 122/76 01/01/24 15:29 Pulse Ox 94 01/01/24 15:30 O2 Del Method Room Air 01/01/24 15:29 BMI result Body Mass Index 32.3 Const: General: cooperative and no acute distress Orientation/consciousness: patient oriented x3 HEENT: Head: Yes atraumatic Ears: TM's normal bilaterally Mouth: tongue normal Eyes: Pupils: Equal, round and reactive pupils present EOM: EOMs intact bilaterally Neck: Other: Cervical collar in place Neck: No tender Chest: Chest palpation & inspection: normal inspection of the chest and normal palpation of entire chest wall Resp: Effort & Inspection: normal respiratory effort, able to speak in complete sentences and no respiratory distress Auscultation: clear to auscultation bilaterally Cardio: Rate: regular rate Rhythm: regular rhythm Peripheral pulses: Peripheral pulses 2+ throughout GI: Inspection: Yes normal to inspection Palpation (GI): Soft to palpation, not firm, nontender, no guarding and not rigid Auscultation: normal bowel sounds Back/Spine/Pelvis: Back: No back tenderness Neuro: Other: He is alert and oriented to person, place, and partially to time. He follows commands well. His speech is fairly clear with minimal dysarthria. He has mild left hemiatrophy of the upper and lower extremity with the spasticity and hyperreflexia. He walks with a cane.He has a strabismus. General: patient oriented x3 and moves all extremities Cranial nerves: Yes Facial sensation intact/muscles of mastication intact, Yes Intact sense of smell present, Yes Equal, round and reactive pupils present, Yes Nystagmus not present, Yes Midline tongue present, Yes Normal gag reflex present, Yes Symmetric palate elevation present, Yes Ability to bilaterally elevate shoulders present and Yes Other cranial nerve findings present (Right eye esotropia ) Sensory Exam: No Sensory deficit (Neuro) Results Labs 01/01/24 08:46 01/01/24 08:46 Labs: Short CBC 01/01/24 Range/Units 08:46 WBC 10.7 (4.8-10.8) X10*3/uL Hgb 15.2 (14.0-18.0) g/dl Hct 45.0 (42.0-52.0) % Plt Count 227 (160-400) X10*3/uL BMP 01/01/24 08:46 Sodium 145 Potassium 4.2 Chloride 116 H Carbon Dioxide 21 L BUN 21 H Creatinine 1.33 Calcium 8.4 D Urine 01/01/24 01/01/24 Range/Units 00:57 04:45 Urine Color Yellow Yellow Urine Appearance Cloudy Clear Urine pH 5.5 5.5 (5.0-9.0) Ur Specific [place] 1.020 1.020 (1.005-1.025) Urine Protein Trace Negative (Neg-Trace) mg/dL Urine Glucose (UA) Negative Negative (Negative) mg/dL Assessment and Plan (1) Syncope: Status: Acute It is unclear if he fell or had a syncopal episode. There is no epileptiiform activity on the EEG. He has marked developmental abnormalities of the brain for which he is well compensated. I will put and would not start him on any seizure medications. Cardiac monitoring. Plan 78-year-old male with history of hypertension, cerebral palsy to be observed for unwitness fall with concern for syncope. Unwitnessed fall with concern for syncope -Head CT negative for any acute intracranial abnormality, but shows large area encephalomalacia. CT cervical spine negative for any acute osseous abnormality CXR negative for infection. Pt afebrile, mild leukocytosis 13 ua neg for pyuria /bacteruria orthostatic signs -pending Check echo: The left ventricular systolic function is hyperdynamic. The calculated ejection fraction is 73% by biplane method. - No obvious valvular pathology seen on this study. EEG pending plan: monitor on telemetry PT evaluation THOMAS: -baseline unknown,BUT CR Improving IVf -Follow renal function/lytes HTN -bp reasonably controlled hold lisinopril Possible balanitis and urinary retention:PVR, straight cath, urology evaluation, Flomax. DVT prophylaxis-heparin Ongoing need for Hospitalization stay: For syncopal workup, telemetry monitoring as well as PT evaluation in addition patient has possible balanitis with urinary retention need urology evaluation as well as THOMAS need hydration and renal function and electrolyte monitoring Procedures Date of Service Date of Service: 01/01/24
[2024-01-02] VITALS (8 sets, daily range): BP systolic 123–155; BP diastolic 59–76; PULSE 72–113; RESP 18–20; TEMP 36–38.9; O2SAT 92–96
[2024-01-02] MEDS: 0.9 % Sodium Chloride Flush 3 ML SYRINGE IVFLUSH ×3 (07:41→21:00)
[2024-01-02] MEDS: Heparin Sodium,Porcine 5,000 UNIT/ML VIAL 5000 UNIT SUBCUT ×2 (07:41→21:00)
[2024-01-02] MEDS: Cholecalciferol (Vitamin D3) 25 MCG TABLET PO (07:41)
[2024-01-02] MEDS: Aspirin Enteric Coated 81 MG TABLET.DR PO (07:41)
--- NOTE | 2024-01-02 13:18 | PC.NURSE ---
Pt gives permission for staff to speak to Kaye (brothers significant other) as his HCP (brother) is currently hospitalized and unable to speak with pt or staff.
--- NOTE | 2024-01-02 13:52 | P.CNUR_ITS ---
History of Present Illness Consult details Consult date: 01/02/24 Narrative: CC: Incomplete bladder emptying, paraphimosis 78-year-old male Background cerebral palsy Admitted to hospital after syncopal episode Incomplete bladder emptying Patient states is secondary to penile paraphimosis Apparently this has been present as outpatient On exam has paraphimosis Reduction of paraphimosis performed at bedside CPT 72107? Discussed bladder emptying. Trial doxazosin. May require Mosley catheter however he is hesitant to have this happened. Review of Systems 2 Constitutional: Constitutional: Denies chills and Denies fever(s) Cardiovascular: Cardiovascular: Reports no additional cardiovascular complaints and Denies syncope Respiratory: Respiratory: Denies cough Gastrointestinal: Gastrointestinal: Denies abdominal pain and Denies heartburn Genitourinary: Genitourinary: Reports as per HPI and Denies change in libido Neurologic: Denies syncope Psychiatric: Psychiatric: Denies change in libido Endocrine: Endocrine: Denies change in libido [facility] Past Medical History Medical History Cerebral palsy HTN (hypertension) Social History Social History Household Members: None Housing: Apartment Do you presently have visiting nurse or other home services: Yes Alcohol intake: never Patient Tobacco Use Status: Never used Tobacco Smoked in Last 30 Days: No Use of substances other than those prescribed or required for medical reasons: No Currently Displaying Signs/Symptoms of Drug Intoxication Withdrawal: No Have you been hit, kicked, punched, or otherwise hurt by someone within the past year? If so, by whom?: No Do you feel safe in your current relationship?: Yes Is there a partner from a previous relationship who is making you feel unsafe now?: No Are you made to feel afraid or neglected: No Spiritual Healthcare Practices: Catholic Advance Directives: No Advance Directives Information Provided: No Advance Directives on File: No Do you have thoughts of harming others: None Do you have a plan to hurt others: No Plan Recently lost weight without trying: No Eating poorly because of decreased appetite: No Nutrition Risks: No Nutritional Risk Poor oral hygiene: No service: No Meds Allergies Allergy/AdvReac Type Severity Reaction Status Date / Time No Known Allergies Allergy Verified 12/31/23 13:52 Active Medications: Current Medications Acetaminophen (Acetaminophen 325 Mg Tablet) 650 mg PO Q6H PRN PRN Reason: Pain, Mild (Pain Scale 1-3) Aspirin (Aspirin Enteric Coated 81 Mg Tablet.Dr) 81 mg PO DAILY [facility] Last Admin: 01/02/24 07:41 Dose: 81 mg Heparin Sodium (Porcine) (Heparin Sodium,Porcine 5,000 Unit/Ml Vial) 5,000 unit SUBCUT Q12H [facility] Last Admin: 01/02/24 07:41 Dose: 5,000 unit Lactated Ringer's (Lr) 1,000 mls @ 80 mls/hr IVCONT .[id number] [facility] Last Admin: 01/02/24 10:54 Dose: Not Given Ondansetron HCl (Ondansetron Hcl 4 Mg/2 Ml Vial) 4 mg IVPUSH Q8H PRN PRN Reason: Nausea and Vomiting Senna (Sennosides 8.6 Mg Tablet) 17.2 mg PO BEDTIME PRN PRN Reason: Constipation Sodium Chloride (0.9 % Sodium Chloride Flush 3 Ml Syringe) 3 ml IVFLUSH QSHIFT [facility] Last Admin: 01/02/24 07:41 Dose: 3 ml Vitamin D (Cholecalciferol (Vitamin D3) 25 Mcg Tablet) 25 mcg PO DAILY [facility] Last Admin: 01/02/24 07:41 Dose: 25 mcg Home Medications Medication Instructions Recorded Confirmed Last Taken Type aspirin 81 mg tablet,delayed 81 mg PO DAILY 12/31/23 12/31/23 12/31/23 History release cholecalciferol (vitamin D3) 25 25 mcg PO DAILY 12/31/23 12/31/23 12/31/23 History mcg (1,000 unit) tablet lisinopril 20 mg tablet 20 mg PO DAILY 12/31/23 12/31/23 12/31/23 History Physical Exam 2 Vital Signs: Vital Signs: Last Vital Signs Temp 98.4 F 01/02/24 11:09 Pulse 88 01/02/24 11:09 Resp 20 01/02/24 11:09 BP 139/72 01/02/24 11:09 Pulse Ox 96 01/02/24 11:09 O2 Del Method Room Air 01/02/24 11:09 BMI result Body Mass Index 32.3 Const: General: cooperative, healthy appearing, comfortable and no acute distress Orientation/consciousness: patient oriented x3 HEENT: Face and sinus: Yes normal facial exam Mouth: moist mucous membranes Neck: Neck: Yes normal visual inspection, Yes full ROM and Yes trachea midline Chest: Chest palpation & inspection: normal inspection of the chest Resp: Effort & Inspection: normal respiratory effort, able to speak in complete sentences and no respiratory distress GI: Inspection: Yes normal to inspection Back/Spine/Pelvis: Cervical Spine: normal cervical lordosis Thoracic/Lumbar Spine: thoracic and lumbar spine normal to inspection Skin: General skin exam: no rashes or lesions noted Neuro: General: patient oriented x3, gait normal, tone normal and moves all extremities Extrem: General: Yes normal to inspection and Yes capillary refill normal Results Labs 01/01/24 08:46 01/01/24 08:46 Labs: Urine 01/01/24 01/01/24 Range/Units 00:57 04:45 Urine Color Yellow Yellow Urine Appearance Cloudy Clear Urine pH 5.5 5.5 (5.0-9.0) Ur Specific [place] 1.020 1.020 (1.005-1.025) Urine Protein Trace Negative (Neg-Trace) mg/dL Urine Glucose (UA) Negative Negative (Negative) mg/dL All other labs normal. Assessment and Plan (1) Urinary retention with incomplete bladder emptying: Status: Acute (2) Paraphimosis: Status: Acute Plan Phimosis reduction Start doxazosin Continue intermittent PVR measurement Procedures Date of Service Date of Service: 01/02/24 Procedure Note Procedure Note: Reduction of paraphimosis at bedside performed Will need nursing assessment to ensure non reversal
--- NOTE | 2024-01-02 15:05 | HO.PM.IMPN ---
Subjective Subjective Date of Service: 01/02/24 Interval History: Orthostasis, paraphimosis Review of Systems Patient symptoms argueta improving denies any dizziness or chest pain Penile paraphimosis area looks similar to yesterday. Physical Exam Vital Signs: Vital Signs: Last Vital Signs Temp 98.4 F 01/02/24 11:09 Pulse 88 01/02/24 11:09 Resp 20 01/02/24 11:09 BP 139/72 01/02/24 11:09 Pulse Ox 96 01/02/24 11:09 O2 Del Method Room Air 01/02/24 11:09 BMI result Body Mass Index 32.3 Appearance: Alert.? Oriented X3.? not in distress.? cvs: rrr, [id number] , no murmur res: clear to auscultation ,no rhonchii or wheezing abd: no rebound or guarding ,nt, bs present. ext pulses present , no cyanosis . : has penile skin swellin ,no erythema or discharge. neuro: axo3 , nonfocal Objective Data Active Medications Acetaminophen (Acetaminophen 325 Mg Tablet) 650 mg PO Q6H PRN PRN Reason: Pain, Mild (Pain Scale 1-3) Aspirin (Aspirin Enteric Coated 81 Mg Tablet.) 81 mg PO DAILY [facility] Last Admin: 01/02/24 07:41 Dose: 81 mg Documented By: BULMARO Doxazosin Mesylate (Doxazosin Mesylate 2 Mg Tablet) 4 mg PO BEDTIME [facility]; Protocol Heparin Sodium (Porcine) (Heparin Sodium,Porcine 5,000 Unit/Ml Vial) 5,000 unit SUBCUT Q12H [facility] Last Admin: 01/02/24 07:41 Dose: 5,000 unit Documented By: BULMARO Lactated Ringer's (Lr) 1,000 mls @ 80 mls/hr IVCONT .[id number] [facility] Last Admin: 01/02/24 10:54 Dose: Not Given Documented By: MIKE Non-Admin Reason: Dr Montague said to stop Ondansetron HCl (Ondansetron Hcl 4 Mg/2 Ml Vial) 4 mg IVPUSH Q8H PRN PRN Reason: Nausea and Vomiting Senna (Sennosides 8.6 Mg Tablet) 17.2 mg PO BEDTIME PRN PRN Reason: Constipation Sodium Chloride (0.9 % Sodium Chloride Flush 3 Ml Syringe) 3 ml IVFLUSH QSHIFT [facility] Last Admin: 01/02/24 07:41 Dose: 3 ml Documented By: BULMARO Vitamin D (Cholecalciferol (Vitamin D3) 25 Mcg Tablet) 25 mcg PO DAILY [facility] Last Admin: 01/02/24 07:41 Dose: 25 mcg Documented By: BULMARO Labs 01/01/24 08:46 01/01/24 08:46 Assessment and Plan (1) Paraphimosis: Status: Acute (2) Urinary retention with incomplete bladder emptying: Status: Acute Plan 78-year-old male with history of hypertension, cerebral palsy to be observed for unwitness fall with concern for syncope. Unwitnessed fall with concern for syncope -Head CT negative for any acute intracranial abnormality, but shows large area encephalomalacia. CT cervical spine negative for any acute osseous abnormality CXR negative for infection. Pt afebrile, mild leukocytosis 13 ua neg for pyuria /bacteruria orthostatic signs -pending Check echo: The left ventricular systolic function is hyperdynamic. The calculated ejection fraction is 73% by biplane method. - No obvious valvular pathology seen on this study. EEG pending plan: monitor on telemetry PT evaluation THOMAS: -baseline unknown,BUT CR Improving IVf -Follow renal function/lytes HTN -bp reasonably controlled hold lisinopril Possible balanitis vs paraphimosis and urinary retention:PVR, straight cath, urology evaluation, Flomax. DVT prophylaxis-heparin Ongoing need for Hospitalization stay: For syncopal workup, telemetry monitoring as well as PT evaluation in addition patient has possible balanitis with urinary retention need urology evaluation as well as THOMAS need hydration and renal function and electrolyte monitoring Quality Stroke Does the patient have a stroke diagnosis?: No VTE Prior VTE?: No VTE Risk Level:: Medical - moderate - high VTE Device Contraindication: Treatment Not Indicated VTE Drug Contraindication: N/A - Med Ordered
--- NOTE | 2024-01-02 20:05 | PC.NURSE ---
Assumed care of patient at 19:00. Covering Dr. Gustavo Garrido notified of evening vitals pt febrile 102.1 po. HR 113. MD orders for BCx2, lactic, CBC with diff, and bldder scan with U/A due to pt unable to spontaneously void with s/c done today. Prn apap.
[2024-01-02 20:42] LABS: MANUAL DIFF FLAG NO
[2024-01-02 20:43] LABS: Basophils Absolute Auto 0.1 X10*3/uL (0.0-0.2); Basophils Percent Auto 0.5 % (0-2); Eosinophils Percent Auto 0.3 % (0-4); Hematocrit 48.2 % (42.0-52.0); Hemoglobin 16.1 g/dl (14.0-18.0); Imm Gran Abs Auto 0.08 X10*3/uL (0.00-0.03); Imm Gran Pct Auto 0.6 % (0.0-0.4); Lymphocytes Absolute Auto 0.6 X10*3/uL (1.2-4.9); Lymphocytes Percent Auto 4.6 % (20-40); Mean Corpuscular HGB Conc 33.4 g/dl (31.0-36.0); Mean Corpuscular Hemoglobin 30.7 pg (27.0-33.0); Mean Corpuscular Volume 91.8 fL (80.0-98.0); Mean Platelet Volume 9.8 fL (9.4-12.4); Monocytes Absolute Auto 0.7 X10*3/uL (0.1-1.2); Monocytes Percent Auto 5.6 % (2-11); Neutrophils Absolute Auto 11.5 x10*3/uL (2.0-8.3); Neutrophils Percent Auto 88.4 % (45-73); Platelet Count 214 X10*3/uL (160-400); Red Blood Count 5.25 X10*6/uL (4.60-5.80); Red Cell Distribution Width 13.8 % (11.0-16.0)
[2024-01-02] MEDS: Doxazosin Mesylate 2 MG TABLET 4 MG PO (21:00)
[2024-01-02] MEDS: Acetaminophen 325 MG TABLET 650 MG PO (21:00)
--- NOTE | 2024-01-02 21:28 | PC.NURSE ---
FLU/Covid/RSV sample sent as part of fever workup. U/A ordered with straight cath as pt retaining urine bladder scan 758; pt still unable to void spontaneously despite attempt. Attempted to straight cath though unsuccessful due to foreskin swelling. Per chart review urology was consulted and saw patient today for reduction of paraphimosis. Covering Dr. Gustavo Garrido and nursing closing supervisor notified with plans to reach out to urologist on-call Dr. Augie Root for further orders.
[2024-01-02 21:45] LABS: Lactic Acid 1.2 mmol/L (0.5-2.0)
[2024-01-02 22:20] LABS: Influenza A PCR POSITIVE (Negative); Influenza B PCR NEGATIVE (Negative); Resp Syncy Virus RNA Qual PCR NEGATIVE (Negative); SARS COV2 PCR INHOUSE NEGATIVE (Negative)
[2024-01-02 23:10] LABS: Appearance Urine Clear; Color Urine Yellow; Glucose Urine UA Negative (Negative); Leukocyte Esterase Urine Negative (Negative); Nitrite Urine Negative (Negative); UMIC TRIGGER UA YES; Urine Blood Moderate (2+) (Negative); Urine Ketones Trace mg/dL (Negative); Urine Protein Negative (Neg-Trace)
[2024-01-02 23:19] LABS: Bacteria Urine None Seen (None Seen); Hyaline Casts Urine 0-2 /LPF (0-2); RBC Urine >20 /HPF (0-2); Squamous Epithelial Cell Urine 0-2 /HPF (0-2); WBC Urine 0-5 /HPF (0-5)
--- NOTE | 2024-01-02 23:30 | PC.NURSE ---
Spoke with Urology covering MD; verbal okay to place indwelling urinary catheter for obstruction/retention. Covering hospitalist Dr. Gustavo Garrido notified and ordered placed. Took two attempts, 16french rolle placed and U/A sample sent as ordered. [facility]icare provided. Pt back +Flu on respiratory panel that was sent. notified. Contact/Droplet precautions in place. Tamiflu ordered, awaiting pharmacy verification at this time of writing.
[2024-01-02] MEDS: Oseltamivir Phosphate 75 MG CAPSULE PO (23:54)
[2024-01-03] VITALS (7 sets, daily range): BP systolic 114–134; BP diastolic 60–74; PULSE 101–114; RESP 16–20; TEMP 36.9–37.6; O2SAT 91–96
[2024-01-03] MEDS: 0.9 % Sodium Chloride Flush 3 ML SYRINGE IVFLUSH ×3 (08:50→21:07)
[2024-01-03] MEDS: Oseltamivir Phosphate 30 MG CAPSULE PO ×2 (08:50→21:06)
[2024-01-03] MEDS: Aspirin Enteric Coated 81 MG TABLET.DR PO (08:50)
[2024-01-03] MEDS: Heparin Sodium,Porcine 5,000 UNIT/ML VIAL 5000 UNIT SUBCUT ×2 (08:50→21:06)
[2024-01-03] MEDS: Cholecalciferol (Vitamin D3) 25 MCG TABLET PO (08:50)
--- NOTE | 2024-01-03 09:06 | MHC.CM.PN ---
PT rec. STR for DC plan for pt., LION contacted MICHELLE nurse Ebony to ask which STR near [facility] in [place] she rec., referrals sent, pt. accepted at [facility]. PAS[facility] requested, sent to CM via email due to out of state form. Form completed on 01/02/24, signed by , scanned to STR. Family, Kaye, notified, she informed CM that she is not able to transport pt. to STR, and that she will pay for a cab. CM researched transportation options: .[employer] [phone] gave a camejo of $250.00 and will provide a WC, [employer], may be available, camejo is $150.00, they do not provide a WC, but can assist door to door.
--- NOTE | 2024-01-03 11:06 | MHC.CM.PN ---
Addendum entered by Celso Hoff, RN 01/03/24 14:22: CM REQUESTED CALL BACK FROM [facility] AT [facility] TO CLARIFY MESSAGE STATING WE DON'T GET AUTH , CM RECEIVED CALL FROM ROBEL JUNG AND SHE REPORTED THAT DUE TO PT'S TEMP 102.1 W/NEW FLU DX THEY WILL NOT BE ABLE TO TAKE PT OVER W/E AND WILL FOLLOW UP ON SATURDAY, ROBEL ALSO REPORTS THAT [facility] DOES NOT EVEN HAVE A BED UNTIL SATURDAY AND VERIFIED [facility] WOULD NEED TO GET INS AUTH FOR FACILITY. CM HAS ALSO FOLLOWED UP W/[facility] AND LIAISON THERE SAID THEY HAVE BEEN TRYING TO GET IN TOUCH W/USP AND HAVE HAD NOT HEARD BACK FROM THEM, CM DID PROVIDE LIAISON W/[facility] NURSE CELSO SOARES'S CONTACT NUMBER, CM AWAITING RESPONSE AND WILL CONT TO FOLLOW. Original Note: EMR REVIEWED, PER MULTI DISCIPLINARY ROUNDS UNSURE IF PT WILL DC TODAY BC'S PENDING, MAY NEED UROLOGY TO RECONSULT AND PT TESTED POSITIVE FOR FLU LAST NIGHT, PT RECEIVED FIRST DOSE OF TAMIFLU THIS AM, TOUCHPOINTS MADE AWARE VIA [facility] AND CM AWAITING REPOSNSE
--- NOTE | 2024-01-03 11:12 | MHC.CM.PN ---
CM RECEIVED CALL FROM ARGENIS AT PT'S [facility], ARGENIS UPDATED AND CM WILL UPDATE HER WHEN DC IS CONFIRMED.
--- NOTE | 2024-01-03 12:30 | P.PNUR_ITS ---
Subjective Subjective Date of Service: 01/03/24 Interval history: FU on Jason who is an 78 year old male past medical history hypertension, cerebral palsy, he presented to the hospital due to an unwitnessed fall. He was seen by Urology in consultation on 01/02/2024 for paraphimosis and incomplete bladder emptying. The foreskin was reduced at the bedside. Doxazosin 4 mg daily was recommended by Urology. The nurses have reported that they had been performing intermittent straight catheterization but had difficulty during the night due to the penile swelling. I recommended Mosley catheter placement. The patient is tolerating the Mosley catheter urine is john/yellow no clots. Physical Exam 2 Vital Signs: Vital Signs: Last Vital Signs Temp 98.6 F 01/03/24 11:50 Pulse 114 H 01/03/24 11:50 Resp 17 01/03/24 11:50 BP 134/74 01/03/24 11:50 Pulse Ox 94 01/03/24 11:50 O2 Del Method Room Air 01/03/24 11:50 BMI result Body Mass Index 32.3 Const: General: no acute distress and well developed O rientation/consciousness: patient oriented x3 HEENT: Head: Yes normocephalic and Yes atraumatic Eyes: Conjunctivae: conjunctivae normal Neck: Neck: Yes normal visual inspection Chest: Chest palpation & inspection: normal inspection of the chest Resp: Effort & Inspection: normal respiratory effort Cardio: Rate: regular rate GI: Inspection: Yes normal to inspection Palpation (GI): Soft to palpation : Other: Mosley catheter is in place there is mild swelling at the penile glans and foreskin. Urine is draining well into a gravity bag. Neuro: General: patient oriented x3 Psych: Appearance: grossly normal Affect: normal affect Urology Results Labs 01/02/24 20:22 01/01/24 08:46 Labs: Laboratory Results - last 24 hr 01/02/24 01/02/24 01/02/24 20:22 21:12 21:13 WBC 13.0 H RBC 5.25 Hgb 16.1 Hct 48.2 MCV 91.8 MCH 30.7 MCHC 33.4 RDW 13.8 Plt Count 214 MPV 9.8 Immature Gran % (Auto) 0.6 H Neut % (Auto) 88.4 H Lymph % (Auto) 4.6 L Crowley % (Auto) 5.6 Eos % (Auto) 0.3 Baso % (Auto) 0.5 Lymph # (Auto) 0.6 L Crowley # (Auto) 0.7 Eos # (Auto) 0.0 Baso # (Auto) 0.1 Abs Immat Gran (auto) 0.08 H Absolute Neuts (auto) 11.5 H Absolute Nucleated RBC 0.000 Nucleated RBC % (auto) 0.0 Lactic Acid 1.2 Urine Color Urine Appearance Urine pH Ur Specific [place] Urine Protein Urine Glucose (UA) Urine Ketones Urine Blood Urine Nitrite Ur Leukocyte Esterase Urine RBC Urine WBC Ur Squamous Epith Cells Urine Bacteria Hyaline Casts Influenza Type A (PCR) POSITIVE A Influenza Type B (PCR) NEGATIVE RSV RNA Qual (PCR) NEGATIVE SARS-CoV-2 RNA (RT-PCR) NEGATIVE 01/02/24 Unknown WBC RBC Hgb Hct MCV MCH MCHC RDW Plt Count MPV Immature Gran % (Auto) Neut % (Auto) Lymph % (Auto) Crowley % (Auto) Eos % (Auto) Baso % (Auto) Lymph # (Auto) Crowley # (Auto) Eos # (Auto) Baso # (Auto) Abs Immat Gran (auto) Absolute Neuts (auto) Absolute Nucleated RBC Nucleated RBC % (auto) Lactic Acid Urine Color Yellow Urine Appearance Clear Urine pH 5.0 Ur Specific [place] 1.020 Urine Protein Negative Urine Glucose (UA) Negative Urine Ketones Trace Urine Blood Moderate (2+) H Urine Nitrite Negative Ur Leukocyte Esterase Negative Urine RBC >20 H Urine WBC 0-5 Ur Squamous Epith Cells 0-2 Urine Bacteria None Seen Hyaline Casts 0-2 Influenza Type A (PCR) Influenza Type B (PCR) RSV RNA Qual (PCR) SARS-CoV-2 RNA (RT-PCR) Progress Note: A&P Assessment and plan (1) Paraphimosis: Status: Acute (2) Urinary retention with incomplete bladder emptying: Status: Acute (3) Redundant foreskin: Status: Acute Plan Recommend continue Mosley catheter voiding trial in 5 to 7 days. Add Proscar 5 mg daily Follow-up outpatient with Urology in 3 -4 weeks Time Spent With Patient Time: Total time managing care of this patient today ____ minutes. Progress Note: Quality Stroke Does the patient have a stroke diagnosis?: No
--- NOTE | 2024-01-03 14:39 | P.PNIM_ITS ---
Subjective Subjective Date of Service: 01/03/24 Interval History: Orthostasis, paraphimosis Review of Systems Patient symptoms argueta improving denies any dizziness or chest pain Penile paraphimosis The foreskin was reduced . Overnight had fever, found to have flu Physical Exam 2 Vital Signs: Vital Signs: Last Vital Signs Temp 98.6 F 01/03/24 11:50 Pulse 114 H 01/03/24 14:07 Resp 17 01/03/24 11:50 BP 134/74 01/03/24 14:07 Pulse Ox 94 01/03/24 14:07 O2 Del Method Room Air 01/03/24 11:50 BMI result Body Mass Index 32.3 Appearance: Alert.? Oriented X3. cvs: rrr, [id number] , res: clear to auscultation ,no rhonchii or wheezing abd: no rebound or guarding ,nt, bs present. Gu-seems forskin seems reduced.has rolle ext pulses present , no cyanosis . neuro: axo3 , nonfocal. Objective Data Active Medications Acetaminophen (Acetaminophen 325 Mg Tablet) 650 mg PO Q6H PRN PRN Reason: Pain, Mild (Pain Scale 1-3) Last Admin: 01/02/24 21:00 Dose: 650 mg Documented By: ZEESHAN Aspirin (Aspirin Enteric Coated 81 Mg Tablet.) 81 mg PO DAILY [facility] Last Admin: 01/03/24 08:50 Dose: 81 mg Documented By: MIKE Doxazosin Mesylate (Doxazosin Mesylate 2 Mg Tablet) 4 mg PO BEDTIME [facility]; Protocol Last Admin: 01/02/24 21:00 Dose: 4 mg Documented By: ZEESHAN Heparin Sodium (Porcine) (Heparin Sodium,Porcine 5,000 Unit/Ml Vial) 5,000 unit SUBCUT Q12H [facility] Last Admin: 01/03/24 08:50 Dose: 5,000 unit Documented By: MIKE Ondansetron HCl (Ondansetron Hcl 4 Mg/2 Ml Vial) 4 mg IVPUSH Q8H PRN PRN Reason: Nausea and Vomiting Oseltamivir Phosphate (Oseltamivir Phosphate 30 Mg Capsule) 30 mg PO BID [facility] Stop: 01/07/24 21:01 Last Admin: 01/03/24 08:50 Dose: 30 mg Documented By: MIKE Senna (Sennosides 8.6 Mg Tablet) 17.2 mg PO BEDTIME PRN PRN Reason: Constipation Sodium Chloride (0.9 % Sodium Chloride Flush 3 Ml Syringe) 3 ml IVFLUSH QSHIFT [facility] Last Admin: 01/03/24 08:50 Dose: 3 ml Documented By: MIKE Vitamin D (Cholecalciferol (Vitamin D3) 25 Mcg Tablet) 25 mcg PO DAILY [facility] Last Admin: 01/03/24 08:50 Dose: 25 mcg Documented By: MIKE Labs 01/02/24 20:22 01/01/24 08:46 Labs: Laboratory Results - last 24 hr 01/02/24 01/02/24 01/02/24 20:22 21:12 21:13 MCV 91.8 MCH 30.7 MCHC 33.4 RDW 13.8 Plt Count 214 MPV 9.8 Immature Gran % (Auto) 0.6 H Neut % (Auto) 88.4 H Lymph % (Auto) 4.6 L [place] % (Auto) 5.6 Eos % (Auto) 0.3 Baso % (Auto) 0.5 Lymph # (Auto) 0.6 L [place] # (Auto) 0.7 Eos # (Auto) 0.0 Baso # (Auto) 0.1 Abs Immat Gran (auto) 0.08 H Absolute Neuts (auto) 11.5 H Absolute Nucleated RBC 0.000 Nucleated RBC % (auto) 0.0 Lactic Acid 1.2 Urine Color Urine Appearance Urine pH Ur Specific [facility] Urine Protein Urine Glucose (UA) Urine Ketones Urine Blood Urine Nitrite Ur Leukocyte Esterase Urine RBC Urine WBC Ur Squamous Epith Cells Urine Bacteria Hyaline Casts Influenza Type A (PCR) POSITIVE A Influenza Type B (PCR) NEGATIVE RSV RNA Qual (PCR) NEGATIVE SARS-CoV-2 RNA (RT-PCR) NEGATIVE 01/02/24 Unknown MCV MCH MCHC RDW Plt Count MPV Immature Gran % (Auto) Neut % (Auto) Lymph % (Auto) Burke % (Auto) Eos % (Auto) Baso % (Auto) Lymph # (Auto) Burke # (Auto) Eos # (Auto) Baso # (Auto) Abs Immat Gran (auto) Absolute Neuts (auto) Absolute Nucleated RBC Nucleated RBC % (auto) Lactic Acid Urine Color Yellow Urine Appearance Clear Urine pH 5.0 Ur Specific [facility] 1.020 Urine Protein Negative Urine Glucose (UA) Negative Urine Ketones Trace Urine Blood Moderate (2+) H Urine Nitrite Negative Ur Leukocyte Esterase Negative Urine RBC >20 H Urine WBC 0-5 Ur Squamous Epith Cells 0-2 Urine Bacteria None Seen Hyaline Casts 0-2 Influenza Type A (PCR) Influenza Type B (PCR) RSV RNA Qual (PCR) SARS-CoV-2 RNA (RT-PCR) Microbiology Microbiology Results: Microbiology 01/01/24 Unknown Urine Culture - Final Urine clean catch - Urine rodriguez top Assessment and Plan (1) Redundant foreskin: Status: Acute (2) Paraphimosis: Status: Acute Plan 78-year-old male with history of hypertension, cerebral palsy to be observed for unwitness fall with concern for syncope. Unwitnessed fall with concern for syncope Head CT negative for any acute intracranial abnormality, but shows large area encephalomalacia. CT cervical spine negative for any acute osseous abnormality CXR negative for infection. Pt afebrile, mild leukocytosis 13 ua neg for pyuria /bacteruria orthostatic signs negative Check echo: The left ventricular systolic function is hyperdynamic. The calculated ejection fraction is 73% by biplane method. - No obvious valvular pathology seen on this study. EEG fine plan: monitor on telemetry-seems fine PT evaluation-rehab THOMAS: -baseline unknown,BUT CR Improving improved with hydration HTN -bp reasonably controlled hold lisinopril Possible balanitis vs paraphimosis and urinary retention:PVR, straight cath, urology evaluation, Flomax.proscar. rehab can do a voiding trial in 5 -7 days Fu with urology in 3 weeks influenza A positive : started on tamiflu ?blood culture sent no fevers DVT prophylaxis-heparin Ongoing need for Hospitalization stay: For syncopal workup, telemetry monitoring as well as PT evaluation in addition patient has possible balanitis with urinary retention need urology evaluation as well as THOMAS need hydration and renal function and electrolyte monitoring Quality Stroke Does the patient have a stroke diagnosis?: No VTE Prior VTE?: No VTE Risk Level:: Medical - moderate - high VTE Device Contraindication: Treatment Not Indicated VTE Drug Contraindication: N/A - Med Ordered
[2024-01-03] MEDS: Finasteride 5 MG TABLET PO (16:29)
[2024-01-03] MEDS: Doxazosin Mesylate 2 MG TABLET 4 MG PO (21:06)
[2024-01-04 04:00] VITALS: BP 125/65; PULSE 96; RESP 16; TEMP 37.8; O2SAT 91
[2024-01-04] MEDS: Acetaminophen 325 MG TABLET 650 MG PO (06:23)
[2024-01-04 06:54] VITALS: BP 110/62; PULSE 102; RESP 19; TEMP 37.2; O2SAT 93
[2024-01-04] MEDS: 0.9 % Sodium Chloride Flush 3 ML SYRINGE IVFLUSH ×3 (09:25→20:20)
[2024-01-04] MEDS: Oseltamivir Phosphate 30 MG CAPSULE PO ×2 (09:25→20:20)
[2024-01-04] MEDS: Finasteride 5 MG TABLET PO (09:25)
[2024-01-04] MEDS: Heparin Sodium,Porcine 5,000 UNIT/ML VIAL 5000 UNIT SUBCUT ×2 (09:25→20:20)
[2024-01-04] MEDS: Aspirin Enteric Coated 81 MG TABLET.DR PO (09:25)
[2024-01-04] MEDS: Cholecalciferol (Vitamin D3) 25 MCG TABLET PO (09:25)
[2024-01-04 11:14] VITALS: BP 109/72; PULSE 90; RESP 18; TEMP 37; O2SAT 93
--- NOTE | 2024-01-04 13:29 | HO.PM.IMPN ---
Subjective Subjective Date of Service: 01/04/24 Interval History: Orthostasis, paraphimosis,influenza A Review of Systems seems improving no fevers Physical Exam Vital Signs: Vital Signs: Last Vital Signs Temp 98.6 F 01/04/24 11:14 Pulse 90 01/04/24 11:14 Resp 18 01/04/24 11:14 BP 109/72 01/04/24 11:14 Pulse Ox 93 01/04/24 11:14 O2 Del Method Room Air 01/04/24 11:14 BMI result Body Mass Index 32.3 Appearance: Alert.? Oriented X3. cvs: rrr, [id number] , res: clear to auscultation ,no rhonchii or wheezing abd: no rebound or guarding ,nt, bs present. Gu-seems forskin seems reduced( similar to yesterday).has rolle ext pulses present , no cyanosis . neuro: axo3 , nonfocal. Objective Data Active Medications Acetaminophen (Acetaminophen 325 Mg Tablet) 650 mg PO Q6H PRN PRN Reason: Pain, Mild (Pain Scale 1-3) Last Admin: 01/04/24 06:23 Dose: 650 mg Documented By: JOSS Aspirin (Aspirin Enteric Coated 81 Mg Tablet.) 81 mg PO DAILY [facility] Last Admin: 01/04/24 09:25 Dose: 81 mg Documented By: CANDY Doxazosin Mesylate (Doxazosin Mesylate 2 Mg Tablet) 4 mg PO BEDTIME [facility]; Protocol Last Admin: 01/03/24 21:06 Dose: 4 mg Documented By: JOSS Finasteride (Finasteride 5 Mg Tablet) 5 mg PO DAILY [facility] Last Admin: 01/04/24 09:25 Dose: 5 mg Documented By: CANDY Heparin Sodium (Porcine) (Heparin Sodium,Porcine 5,000 Unit/Ml Vial) 5,000 unit SUBCUT Q12H [facility] Last Admin: 01/04/24 09:25 Dose: 5,000 unit Documented By: CANDY Ondansetron HCl (Ondansetron Hcl 4 Mg/2 Ml Vial) 4 mg IVPUSH Q8H PRN PRN Reason: Nausea and Vomiting Oseltamivir Phosphate (Oseltamivir Phosphate 30 Mg Capsule) 30 mg PO BID [facility] Stop: 01/07/24 21:01 Last Admin: 01/04/24 09:25 Dose: 30 mg Documented By: CANDY Senna (Sennosides 8.6 Mg Tablet) 17.2 mg PO BEDTIME PRN PRN Reason: Constipation Sodium Chloride (0.9 % Sodium Chloride Flush 3 Ml Syringe) 3 ml IVFLUSH QSHIFT [facility] Last Admin: 01/04/24 09:25 Dose: 3 ml Documented By: CANDY Vitamin D (Cholecalciferol (Vitamin D3) 25 Mcg Tablet) 25 mcg PO DAILY [facility] Last Admin: 01/04/24 09:25 Dose: 25 mcg Documented By: CANDY Labs 01/02/24 20:22 01/01/24 08:46 Microbiology Microbiology Results: Microbiology 01/02/24 20:22 Blood Culture - Preliminary Blood - Venous No growth after 24 hours. 01/02/24 20:22 Blood Culture - Preliminary Blood - Venous No growth after 24 hours. Assessment and Plan (1) Redundant foreskin: Status: Acute (2) Paraphimosis: Status: Acute Plan 78-year-old male with history of hypertension, cerebral palsy to be observed for unwitness fall with concern for syncope. Unwitnessed fall with concern for syncope Head CT negative for any acute intracranial abnormality, but shows large area encephalomalacia. CT cervical spine negative for any acute osseous abnormality CXR negative for infection. Pt afebrile, mild leukocytosis 13 ua neg for pyuria /bacteruria orthostatic signs negative Check echo: The left ventricular systolic function is hyperdynamic. The calculated ejection fraction is 73% by biplane method. - No obvious valvular pathology seen on this study. EEG fine plan: monitor on telemetry-seems fine PT evaluation-rehab THOMAS: -baseline unknown,BUT CR Improving improved with hydration HTN -bp reasonably controlled hold lisinopril Possible balanitis vs paraphimosis and urinary retention:PVR, straight cath, urology evaluation, Flomax.proscar. rehab can do a voiding trial in 5 -7 days Fu with urology in 3 weeks influenza A positive : started on tamiflu ?blood culture sent no fevers DVT prophylaxis-heparin Ongoing need for Hospitalization stay: awaiting rehab placement Quality Stroke Does the patient have a stroke diagnosis?: No VTE Prior VTE?: No VTE Risk Level:: Medical - moderate - high VTE Device Contraindication: Treatment Not Indicated VTE Drug Contraindication: N/A - Med Ordered
[2024-01-04 15:35] VITALS: BP 122/64; PULSE 89; RESP 18; TEMP 36.8; O2SAT 95
[2024-01-04 19:56] VITALS: BP 118/71; PULSE 92; RESP 20; TEMP 36.6; O2SAT 93
[2024-01-04] MEDS: Doxazosin Mesylate 2 MG TABLET 4 MG PO (20:20)
[2024-01-04 23:22] VITALS: BP 125/65; PULSE 93; RESP 18; TEMP 36.9; O2SAT 95
[2024-01-05 04:00] VITALS: BP 92/64; PULSE 84; RESP 18; TEMP 36.7; O2SAT 93
[2024-01-05 07:13] VITALS: BP 125/64; PULSE 82; RESP 18; TEMP 36.9; O2SAT 94
[2024-01-05] MEDS: Heparin Sodium,Porcine 5,000 UNIT/ML VIAL 5000 UNIT SUBCUT ×2 (10:04→21:25)
[2024-01-05] MEDS: Cholecalciferol (Vitamin D3) 25 MCG TABLET PO (10:04)
[2024-01-05] MEDS: Aspirin Enteric Coated 81 MG TABLET.DR PO (10:04)
[2024-01-05] MEDS: Oseltamivir Phosphate 30 MG CAPSULE PO ×2 (10:04→21:24)
[2024-01-05] MEDS: 0.9 % Sodium Chloride Flush 3 ML SYRINGE IVFLUSH ×2 (10:05→16:41)
[2024-01-05] MEDS: Finasteride 5 MG TABLET PO (10:05)
[2024-01-05 11:06] VITALS: BP 123/69; PULSE 76; RESP 20; TEMP 36.8; O2SAT 93
--- NOTE | 2024-01-05 13:57 | P.PNIM_ITS ---
Subjective Subjective Date of Service: 01/05/24 Interval History: Orthostasis, paraphimosis,influenza A Review of Systems seems improving,no fevers Physical Exam 2 Vital Signs: Vital Signs: Last Vital Signs Temp 98.2 F 01/05/24 11:06 Pulse 76 01/05/24 11:06 Resp 20 01/05/24 11:06 BP 123/69 01/05/24 11:06 Pulse Ox 93 01/05/24 11:06 O2 Del Method Room Air 01/05/24 11:06 BMI result Body Mass Index 32.3 Appearance: Alert.? Oriented X3. cvs: rrr, [id number] , res: clear to auscultation ,no rhonchii or wheezing abd: no rebound or guarding ,nt, bs present. Gu-seems forskin seems reduced( similar ).has rolle ext pulses present , no cyanosis . neuro: axo3 , nonfocal. Objective Data Active Medications Acetaminophen (Acetaminophen 325 Mg Tablet) 650 mg PO Q6H PRN PRN Reason: Pain, Mild (Pain Scale 1-3) Last Admin: 01/04/24 06:23 Dose: 650 mg Documented By: JOSS Aspirin (Aspirin Enteric Coated 81 Mg Tablet.) 81 mg PO DAILY [facility] Last Admin: 01/05/24 10:04 Dose: 81 mg Documented By: MIKE Doxazosin Mesylate (Doxazosin Mesylate 2 Mg Tablet) 4 mg PO BEDTIME [facility]; Protocol Last Admin: 01/04/24 20:20 Dose: 4 mg Documented By: JOSS Finasteride (Finasteride 5 Mg Tablet) 5 mg PO DAILY [facility] Last Admin: 01/05/24 10:05 Dose: 5 mg Documented By: MIKE Heparin Sodium (Porcine) (Heparin Sodium,Porcine 5,000 Unit/Ml Vial) 5,000 unit SUBCUT Q12H [facility] Last Admin: 01/05/24 10:04 Dose: 5,000 unit Documented By: MIKE Ondansetron HCl (Ondansetron Hcl 4 Mg/2 Ml Vial) 4 mg IVPUSH Q8H PRN PRN Reason: Nausea and Vomiting Oseltamivir Phosphate (Oseltamivir Phosphate 30 Mg Capsule) 30 mg PO BID [facility] Stop: 01/07/24 21:01 Last Admin: 02/11/24 10:04 Dose: 30 mg Documented By: MIKE Senna (Sennosides 8.6 Mg Tablet) 17.2 mg PO BEDTIME PRN PRN Reason: Constipation Sodium Chloride (0.9 % Sodium Chloride Flush 3 Ml Syringe) 3 ml IVFLUSH QSHIFT [facility] Last Admin: 01/05/24 10:05 Dose: 3 ml Documented By: MIKE Vitamin D (Cholecalciferol (Vitamin D3) 25 Mcg Tablet) 25 mcg PO DAILY [facility] Last Admin: 01/05/24 10:04 Dose: 25 mcg Documented By: MIKE Labs 01/02/24 20:22 01/01/24 08:46 Microbiology Microbiology Results: Microbiology 01/02/24 20:22 Blood Culture - Preliminary Blood - Venous No growth after 48 hours. 01/02/24 20:22 Blood Culture - Preliminary Blood - Venous No growth after 48 hours. Assessment and Plan (1) Redundant foreskin: Status: Acute (2) Paraphimosis: Status: Acute Plan 78-year-old male with history of hypertension, cerebral palsy to be observed for unwitness fall with concern for syncope. Unwitnessed fall with concern for syncope Head CT negative for any acute intracranial abnormality, but shows large area encephalomalacia. CT cervical spine negative for any acute osseous abnormality CXR negative for infection. Pt afebrile, mild leukocytosis 13 ua neg for pyuria /bacteruria orthostatic signs negative Check echo: The left ventricular systolic function is hyperdynamic. The calculated ejection fraction is 73% by biplane method. - No obvious valvular pathology seen on this study. EEG fine plan: monitor on telemetry-seems fine PT evaluation-rehab THOMAS: -baseline unknown,BUT CR Improving improved with hydration HTN -bp reasonably controlled hold lisinopril Possible balanitis vs paraphimosis and urinary retention:PVR, straight cath, urology evaluation, Flomax.proscar. rehab can do a voiding trial in 5 -7 days Fu with urology in 3 weeks influenza A positive : started on tamiflu ?blood culture sent no fevers DVT prophylaxis-heparin Ongoing need for Hospitalization stay: awaiting rehab placement Quality Stroke Does the patient have a stroke diagnosis?: No VTE Prior VTE?: No VTE Risk Level:: Medical - moderate - high VTE Device Contraindication: Treatment Not Indicated VTE Drug Contraindication: N/A - Med Ordered
[2024-01-05 15:23] VITALS: BP 137/69; PULSE 92; RESP 20; TEMP 36.9; O2SAT 94
[2024-01-05 19:08] VITALS: BP 126/67; PULSE 99; RESP 20; TEMP 36.6; O2SAT 94
[2024-01-05] MEDS: Doxazosin Mesylate 2 MG TABLET 4 MG PO (21:24)
[2024-01-05 23:36] VITALS: BP 104/59; PULSE 89; RESP 16; TEMP 36.4; O2SAT 91
[2024-01-06] VITALS (7 sets, daily range): BP systolic 114–143; BP diastolic 68–94; PULSE 70–116; RESP 16–18; TEMP 36–36.6; O2SAT 91–96
[2024-01-06] MEDS: Cholecalciferol (Vitamin D3) 25 MCG TABLET PO (08:25)
[2024-01-06] MEDS: Heparin Sodium,Porcine 5,000 UNIT/ML VIAL 5000 UNIT SUBCUT ×2 (08:25→20:15)
[2024-01-06] MEDS: 0.9 % Sodium Chloride Flush 3 ML SYRINGE IVFLUSH ×2 (08:25→16:42)
[2024-01-06] MEDS: Finasteride 5 MG TABLET PO (08:25)
[2024-01-06] MEDS: Oseltamivir Phosphate 30 MG CAPSULE PO ×2 (08:25→20:15)
[2024-01-06] MEDS: Aspirin Enteric Coated 81 MG TABLET.DR PO (08:25)
--- NOTE | 2024-01-06 10:32 | MHC.CM.PN ---
Addendum entered by Eboyn Hoff RN 01/06/24 14:43: CM RECEIVED MESSAGE FROM SNF REQUESTING UPDATED PT NOTE AND MD NOTE TO BE FAXED TO [facility] [phone] W/ID # ATTACHED. Original Note: EMR REVIEWED, CM MET W/PT TO DETERMINE SNF PREFERENCE HE HAD 2-3 BED OFFERS, PT REPORTS HE PREFERS [facility] HE LIVES IN [place], CM ALSO RECEIVED MESSAGE FROM [facility] [phone] THE DIRECTOR OF PT'S MICHELLE AND SHE HAS BEEN UPDATED ON PLAN AND REQUESTING CM CONTACT HER ONCE WE HAVE DC TIME. CM SPOKE W/LIASHELLI EVANS FROM [facility] TO CLARIFY PT IS ONLY IN NEED OF STR AND NOT LTC THEY WERE ASKING CM TO CLARIFY LEVEL ONE, CIELO VERBALIZES UNDERSTANDING.
--- NOTE | 2024-01-06 14:13 | P.PNIM_ITS ---
Subjective Subjective Date of Service: 01/06/24 Interval History: Orthostasis, paraphimosis,influenza A Review of Systems seems improving,no fevers Physical Exam 2 Vital Signs: Vital Signs: Last Vital Signs Temp 97.4 F 01/06/24 11:08 Pulse 70 01/06/24 11:08 Resp 16 01/06/24 11:08 BP 132/68 01/06/24 11:08 Pulse Ox 95 01/06/24 11:08 O2 Del Method Room Air 01/06/24 11:08 O2 Flow Rate 89 01/05/24 23:36 BMI result Body Mass Index 32.3 Appearance: Alert.? Oriented X3. cvs: rrr, [id number] , res: clear to auscultation ,no rhonchii or wheezing abd: no rebound or guarding ,nt, bs present. Gu-seems forskin seems reduced( similar ).has rolle ext pulses present , no cyanosis . neuro: axo3 , nonfocal. Objective Data Active Medications Acetaminophen (Acetaminophen 325 Mg Tablet) 650 mg PO Q6H PRN PRN Reason: Pain, Mild (Pain Scale 1-3) Last Admin: 01/04/24 06:23 Dose: 650 mg Documented By: JOSS Aspirin (Aspirin Enteric Coated 81 Mg Tablet.) 81 mg PO DAILY [facility] Last Admin: 01/06/24 08:25 Dose: 81 mg Documented By: ELADIO Doxazosin Mesylate (Doxazosin Mesylate 2 Mg Tablet) 4 mg PO BEDTIME [facility]; Protocol Last Admin: 01/05/24 21:24 Dose: 4 mg Documented By: SY Finasteride (Finasteride 5 Mg Tablet) 5 mg PO DAILY [facility] Last Admin: 01/06/24 08:25 Dose: 5 mg Documented By: ELADIO Heparin Sodium (Porcine) (Heparin Sodium,Porcine 5,000 Unit/Ml Vial) 5,000 unit SUBCUT Q12H [facility] Last Admin: 01/06/24 08:25 Dose: 5,000 unit Documented By: ELADIO Ondansetron HCl (Ondansetron Hcl 4 Mg/2 Ml Vial) 4 mg IVPUSH Q8H PRN PRN Reason: Nausea and Vomiting Oseltamivir Phosphate (Oseltamivir Phosphate 30 Mg Capsule) 30 mg PO BID [facility] Stop: 01/07/24 21:01 Last Admin: 01/06/24 08:25 Dose: 30 mg Documented By: ELADIO Senna (Sennosides 8.6 Mg Tablet) 17.2 mg PO BEDTIME PRN PRN Reason: Constipation Sodium Chloride (0.9 % Sodium Chloride Flush 3 Ml Syringe) 3 ml IVFLUSH QSHIFT [facility] Last Admin: 01/06/24 08:25 Dose: 3 ml Documented By: ELADIO Vitamin D (Cholecalciferol (Vitamin D3) 25 Mcg Tablet) 25 mcg PO DAILY [facility] Last Admin: 01/06/24 08:25 Dose: 25 mcg Documented By: ELADIO Labs 01/02/24 20:22 01/01/24 08:46 Assessment and Plan (1) Redundant foreskin: Status: Acute (2) Paraphimosis: Status: Acute Plan 78-year-old male with history of hypertension, cerebral palsy to be observed for unwitness fall with concern for syncope. Unwitnessed fall with concern for syncope Head CT negative for any acute intracranial abnormality, but shows large area encephalomalacia. CT cervical spine negative for any acute osseous abnormality CXR negative for infection. Pt afebrile, mild leukocytosis 13 ua neg for pyuria /bacteruria orthostatic signs negative Check echo: The left ventricular systolic function is hyperdynamic. The calculated ejection fraction is 73% by biplane method. - No obvious valvular pathology seen on this study. EEG fine plan: monitor on telemetry-seems fine PT evaluation-rehab THOMAS:-baseline unknown improved with hydration HTN-bp reasonably controlled hold lisinopril Possible balanitis vs paraphimosis and urinary retention:PVR, straight cath, urology evaluation, Flomax.proscar. rehab can do a voiding trial in 5 -7 days Fu with urology in 3 weeks influenza A positive : started on tamiflu blood culture neg @48hrs ,no fevers DVT prophylaxis-heparin Ongoing need for Hospitalization stay: awaiting rehab placement Quality Stroke Does the patient have a stroke diagnosis?: No VTE Prior VTE?: No VTE Risk Level:: Medical - moderate - high VTE Device Contraindication: Treatment Not Indicated VTE Drug Contraindication: N/A - Med Ordered
[2024-01-06] MEDS: Acetaminophen 325 MG TABLET 650 MG PO (16:41)
[2024-01-06] MEDS: Doxazosin Mesylate 2 MG TABLET 4 MG PO (20:15)
[2024-01-07] MEDS: 0.9 % Sodium Chloride Flush 3 ML SYRINGE IVFLUSH ×2 (00:37→08:35)
[2024-01-07 03:13] VITALS: BP 138/79; PULSE 86; RESP 18; TEMP 36; O2SAT 94
[2024-01-07 07:29] VITALS: BP 117/69; PULSE 75; RESP 20; TEMP 36.6; O2SAT 93
[2024-01-07] MEDS: Oseltamivir Phosphate 30 MG CAPSULE PO (08:34)
[2024-01-07] MEDS: Finasteride 5 MG TABLET PO (08:34)
[2024-01-07] MEDS: Aspirin Enteric Coated 81 MG TABLET.DR PO (08:34)
[2024-01-07] MEDS: Cholecalciferol (Vitamin D3) 25 MCG TABLET PO (08:34)
[2024-01-07] MEDS: Heparin Sodium,Porcine 5,000 UNIT/ML VIAL 5000 UNIT SUBCUT (08:34)
--- NOTE | 2024-01-07 09:33 | P.DS_ITS ---
DS: Providers Provider Date of Service: 01/07/24 Date of admission: 12/31/23 20:24 Primary care physician: Mami Prado MD Consults: 01/01/24 12:35 Consult to Urology Routine Consulting Provider: [facility] Reason for consultation: Balanitis,urinary retention Has provider been notified: No DS: Diagnosis Discharge Diagnosis (1) Redundant foreskin: Status: Acute (2) Paraphimosis: Status: Acute DS: Summary Hospital Course Hospital Course: Chief Complaint: fall 78-year-old male with history of hypertension, cerebral palsy presented to the ED via EMS following an unwitnessed fall, syncopal episode at [place] prior to arrival. The patient tells me that he resides in an assisted living facility in [facility] but was on a senior trip which is how [place]. He states he tripped and fell to the ground. Denies any head strike and is unsure if he lost consciousness. The fall was unwitnessed. He denies any recent illness. He denies any prodrome leading up to the fall including lightheadedness, visual changes, headache, weakness, paresthesias, palpitations, shortness of breath, or chest pain. Denies any fevers, chills, abdominal pain, nausea, vomiting, diarrhea, urinary symptoms. On arrival, vital signs stable. There is a mild leukocytosis of 13.4. Creatinine 1.53, baseline unknown. BUN 28. Electrolyte levels within normal limits except CO2 of 19. Ethyl alcohol level undetectable. Urine drug screen pending. Negative for COVID-19, influenza, RSV. Head CT negative for any acute intracranial abnormality but showed extensive encephalomalacia involving the majority of the right cerebral hemisphere likely related to remote ischemic injury. 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 CT of the cervical spine negative for any acute fracture, subluxation, or dislocation. Chest x-ray shows hypoexpanded lungs with mildly increased right basilar markings likely due to atelectasis. In the ED, has received 2 L IV NS. Hospital course: Unwitnessed fall with concern for syncope. Work up with Head CT negative for any acute intracranial abnormality, but shows large area encephalomalacia. CT cervical spine negative for any acute osseous. Was monitored on telemetry without any arrythmia THOMAS--treated with IVF and resolved. He was seen by Urology in consultation on 01/02/2024 for paraphimosis and incomplete bladder emptying. The foreskin was reduced at the bedside. Doxazosin 4 mg daily and finesteride 5 mg daily was recommended by Urology. He was having intermittent straight catheterization but with difficulty due to penile edema and therefore a rolle cath was inserted. HTN--due to blood pressure being normal or near normal without Lisinopril 20 mg Time Attestation Discharge coordination time: Greater than 30 minutes Quality: Safe Use of Opioids Does Pt have an Active Cancer Diagnosis on the Problem List?: No Quality: Stroke Does the patient have a stroke diagnosis?: No Physical Exam Vital Signs: Vital Signs: Last Vital Signs Temp 97.8 F 01/07/24 07:29 Pulse 75 01/07/24 07:29 Resp 20 01/07/24 07:29 BP 117/69 01/07/24 07:29 Pulse Ox 93 01/07/24 07:29 O2 Del Method Room Air 01/07/24 07:29 O2 Flow Rate 89 01/05/24 23:36 BMI result Body Mass Index 32.3 DS: Data Data Completed and Pending Labs on day of discharge: Preliminary micro results at discharge 01/02/24 20:22 Blood Culture - Preliminary Blood - Venous No growth after 48 hours. 01/02/24 20:22 Blood Culture - Preliminary Blood - Venous No growth after 48 hours. Discharge Plan Discharge Anticipated Discharge Date/Time: 01/07/24 10:23 Patient Disposition: er [facility] Discharge Diagnosis: Syncope, paraphimosis Referrals: Mami Prado MD [Primary Care Provider] - 1 Week Discharge Medications: New sennosides [Senna Lax] 8.6 mg Tablet 17.2 mg PO BEDTIME PRN (Reason: Constipation) Qty: 60 0RF finasteride 5 mg Tablet 5 mg PO DAILY Qty: 30 0RF Continued aspirin 81 mg tablet,delayed release (DR/EC) 81 mg PO DAILY cholecalciferol (vitamin D3) 25 mcg (1,000 unit) tablet 25 mcg PO DAILY Discontinued lisinopril 20 mg tablet 20 mg PO DAILY Discharge Orders: Discharge Order (Routine); Ordered 01/07/24 Ordered By: Andres Dan Diet: Advance to usual diet Activity on Discharge: As tolerated Stand Alone Forms: Patient Portal Discharge page Care Plan Goals: recovery from syncope and paraphymosis Health Concerns: syncope paraphymosis incomplete bladder emptying\ Plan of Treatment: take all medications as recommended and follow up with your Doctor in a week Assessment: see above
--- NOTE | 2024-01-07 11:24 | MHC.CM.PN ---
Second IMM was given to pt. on 01/06/24, pt has been medically cleared for DC, he will go today via ambulance to [facility] and rehab for STR. Family and [facility] notified.
[2024-01-07 11:35] VITALS: BP 140/79; PULSE 74; RESP 18; TEMP 36.7; O2SAT 96
--- NOTE | 2024-01-07 14:49 | PC.NURSE ---
rn to rn report given to remy at [facility] at 14:45
== END 2024-01-07 14:51 | disposition skilled nursing facility (03) | DRG 728 ==
LOC: HO.ED 19:25 → HO.EDOVER 20:36 → HO.IMC 01-01 02:04
PROVIDERS: Physician Assistant; Admitting Provider Internal Medicine; Emergency Provider Emergency Medicine; PCP Family Medicine; Visit Provider Internal Medicine
DX: N47.2 Paraphimosis (principal); N17.9 Acute kidney failure, unspecified; G80.9 Cerebral palsy, unspecified; N48.1 Balanitis; R55 Syncope and collapse; I10 Essential (primary) hypertension; J10.1 Influenza due to other identified influenza virus with other respiratory manifestations; Z20.822 Contact with and (suspected) exposure to COVID-19; Z79.82 Long term (current) use of aspirin; Z79.899 Other long term (current) drug therapy
CPT/HCPCS: 0241U; 36415; 70450; 71045; 72125; 80048; 80076; 80307; 81001; 81003; 83605; 83690; 84484; 85025; 87040; 87086; 93005; 93306; 95816; 97116; 97162; 97530; 99222; 99285; C1758; J1644; J7120; Q9957

== ENCOUNTER → 2023-12-31 13:52 | Outpatient (BNV) | payer MEDICARE, SELFPAY | PROVIDERS: Emergency Provider Emergency Medicine; PCP Family Medicine; Visit Provider Internal Medicine | DX: I45.10 Unspecified right bundle-branch block (principal); R94.31 Abnormal electrocardiogram [ECG] [EKG] | CPT/HCPCS: 93010 ==

== ENCOUNTER 2023-12-31 20:24 | Outpatient (BNV) | payer MEDICARE, SELFPAY | END 2024-01-01 07:00 | PROVIDERS: Admitting Provider Internal Medicine; Emergency Provider Emergency Medicine; PCP Family Medicine; Visit Provider Internal Medicine | DX: R94.31 Abnormal electrocardiogram [ECG] [EKG] (principal) | CPT/HCPCS: 93306 ==

== ENCOUNTER → 2023-12-31 20:24 | Outpatient (BNV) | payer MEDICARE, SELFPAY | PROVIDERS: Admitting Provider Internal Medicine; Emergency Provider Emergency Medicine; PCP Family Medicine; Visit Provider Physician Assistant | DX: N47.8 Other disorders of prepuce (principal); N47.2 Paraphimosis | CPT/HCPCS: 99223; 99231; 99232; 99238 ==

== ENCOUNTER → 2023-12-31 20:24 | Outpatient (BNV) | payer MEDICARE, SELFPAY | PROVIDERS: Admitting Provider Internal Medicine; Emergency Provider Emergency Medicine; PCP Family Medicine; Visit Provider Urology | DX: N47.2 Paraphimosis (principal); R33.9 Retention of urine, unspecified; N47.8 Other disorders of prepuce | CPT/HCPCS: 54450; 99222; 99232 ==

== ENCOUNTER → 2023-12-31 20:24 | Outpatient (BNV) | payer MEDICARE, SELFPAY | PROVIDERS: Admitting Provider Internal Medicine; Emergency Provider Emergency Medicine; PCP Family Medicine; Visit Provider Psychiatry & Neurology Neurology | DX: R55 Syncope and collapse (principal) | CPT/HCPCS: 99222 ==